=== PATIENT | female | born 1955 | race American Indian/Alaskan Native ===

== ENCOUNTER 2018-01-11 23:22 | Inpatient (IN) | payer OTHER ==
[2018-01-11] MEDS ORDERED: NORVASC ONE (23:41)
[2018-01-11] MEDS ORDERED: NORVASC PO ONE (23:50)
--- NOTE | 2018-01-12 00:41 | Cat Scan Report ---
FINAL REPORT EXAM: CT HEAD/BRAIN WO CON HISTORY: Neuro deficits < 6hrs or sx present upon awakening. Right facial droop. TECHNIQUE: Unenhanced axial CT images of the brain were obtained. No prior studies are available for comparison. FINDINGS: The cortical sulci and ventricles are within normal limits for patient's age. There is patchy area of low attenuation in the right basal ganglia, extending superiorly in the right santoro radiata. This is in keeping with infarct, favor subacute/chronic etiology. Correlation with clinical symptoms is recommended. MRI examination can be performed for more definitive evaluation. There is no extra-axial fluid collection, mass, mass effect, midline shift, hydrocephalus, or acute intracranial hemorrhage. The visualized paranasal sinuses and mastoid air cells are clear. There is no skull fracture or other osseous abnormality. The visualized orbits and globes are grossly unremarkable. These findings were discussed with Dr. Mercado at time of interpretation 12:25 a.m. EST 01/12/2018. IMPRESSION: 1. Patchy region of low attenuation in the right basal ganglia and right santoro radiata, in keeping with infarct. While this is of indeterminate age, favor subacute/chronic etiology. Correlation with clinical symptoms is recommended. If necessary, MRI examination can be performed for more definitive evaluation. 2. No mass effect, hydrocephalus, or acute intracranial hemorrhage.
[2018-01-12 00:48] LABS: Basophils # (Auto) 0.1 K/mm3 (0.0-0.1); Basophils % (Auto) 0.7 % (0.0-1.8); Eosinophils # (Auto) 0.1 K/mm3 (0.0-0.4); Eosinophils % (Auto) 1.4 % (0.0-4.3); Hematocrit 42.4 % (30.3-42.9); Hemoglobin 13.9 gm/dl (10.1-14.3); Lymphocytes # (Auto) 2.3 K/mm3 (1.2-5.4); Lymphocytes % (Auto) 28.5 % (13.4-35.0); Mean Corpuscular HGB Conc 33 % (30-34); Mean Corpuscular Hemoglobin 30 pg (28-32); Mean Corpuscular Volume 91 fl (79-97); Monocytes # (Auto) 0.6 K/mm3 (0.0-0.8); Monocytes % (Auto) 7.1 % (0.0-7.3); Platelet Count 182 K/mm3 (140-440); Red Blood Count 4.67 M/mm3 (3.65-5.03); Red Cell Distribution Width 13.7 % (13.2-15.2)
[2018-01-12 00:58] LABS: INR 0.89 (0.87-1.13)
[2018-01-12 00:59] LABS: Partial Thromboplastin Time 26.7 Sec. (24.2-36.6)
[2018-01-12 01:02] LABS: BUN/Creatinine Ratio 22; Blood Urea Nitrogen 24 mg/dL (7-17); Calcium 9.9 mg/dL (8.4-10.2); Hemolysis Index 17
[2018-01-12] MEDS ORDERED: ASPIRIN PO ONE (04:21)
--- NOTE | 2018-01-12 06:14 | Emergency Department Report ---
ED Neuro Deficit HPI - General Chief Complaint: Neuro Symptoms/Deficit Stated Complaint: STROKE SX Time Seen by Provider: 01/12/18 06:12 Source: patient Mode of arrival: Ambulatory Limitations: No Limitations - History of Present Illness Initial Comments: 62-year-old female reports to the emergency department for evaluation of right facial tingling and numbness. This has been present since . In addition the patient has been told that she has some drooping of the left side of her face which family noted as early as yesterday morning. The symptoms have not progressed. The patient denies previous diagnosis of Davenport's palsy. She was taking metoprolol for hypertension but is out for 3 weeks. She mentioned a headache to triage but had no headache at the time of my encounter. She has no history of prior CVA. -: Gradual, days(s) Location: left face, right face Presenting Symptoms: Present: Weak/Paralyzed One Side History of same: No Place: home Severity: mild, moderate Quality: weak, numb, tingling Improves With: none Worsens With: none On Anticoagulants: No Context: gradual onset Associated Symptoms: denies other symptoms (except as above indicated) Treatments Prior to Arrival: none - Related Data Allergies/Adverse Reactions: Allergies Allergy/AdvReac Type Severity Reaction Status Date / Time No Known Allergies Allergy Unverified 01/11/18 23:31 ED Review of Systems ROS: Stated complaint: STROKE SX Other details as noted in HPI Constitutional: denies: chills, fever Eyes: denies: eye pain, eye discharge, vision change ENT: denies: ear pain, throat pain Respiratory: denies: cough, shortness of breath, wheezing Cardiovascular: denies: chest pain, palpitations Endocrine: no symptoms reported Gastrointestinal: denies: abdominal pain, nausea, diarrhea Genitourinary: denies: urgency, dysuria, discharge Musculoskeletal: denies: back pain, joint swelling, arthralgia Skin: denies: rash, lesions Neurological: as per HPI, headache, weakness, numbness, paresthesias Psychiatric: denies: anxiety, depression Hematological/Lymphatic: denies: easy bleeding, easy bruising ED Past Medical Hx - Past Medical History Previous Medical History?: Yes Hx Hypertension: Yes Hx Diabetes: Yes - Surgical History Past Surgical History?: Yes Additional Surgical History: right mastectomy - Social History Smoking Status: Never Smoker Substance Use Type: None ED Neuro Physical Exam - General Limitations: No Limitations General appearance: alert, in no apparent distress Suspected Stroke: Yes - Head Head exam: Present: atraumatic, normocephalic - Eye Eye exam: Present: normal appearance, other (there is weakness of the orbicularis oculi on the left but no apparent front talus weakness). Absent: PERRL, EOMI, scleral icterus Pupils: Present: normal accommodation - ENT ENT exam: Present: mucous membranes moist, other (facial drooping left) - Neck Neck exam: Present: normal inspection. Absent: tenderness, meningismus - Respiratory Respiratory exam: Present: normal lung sounds bilaterally. Absent: respiratory distress - Cardiovascular Cardiovascular Exam: Present: regular rate, normal rhythm. Absent: systolic murmur, diastolic murmur, rubs, gallop - GI/Abdominal GI/Abdominal exam: Present: soft, normal bowel sounds. Absent: distended, tenderness, guarding, rebound, rigid - Extremities Exam Extremities exam: Present: normal inspection - Back Exam Back exam: Present: normal inspection - Neurological Exam Neurological exam: Present: alert, oriented X3. Absent: CN II-XII intact, motor sensory deficit - NIHSS Assessment Interval: Baseline 1a. Level of Consciousness: alert 1b. LOC Questions: answers correctly 1c. LOC Commands: performs tasks correctly 2. Best Gaze: normal 3. Visual: no visual loss 4. Facial Palsy: partial paralysis 5b. Motor Arm Right: no drift 5a. Motor Arm Left: no drift 6a. Motor Leg Left: no drift 6b. Motor Leg Right: no drift 7. Limb Ataxia: absent 8. Sensory: mild/moderate sensory loss 9. Best Language: no aphasia 10. Dysarthria: normal 11. Extinction/Inattention: no abnormality Total Score: 3 Stroke Severity: Minor Stroke - Psychiatric Psychiatric exam: Present: normal affect, normal mood - Skin Skin exam: Present: warm, dry, intact, normal color. Absent: rash ED Course Vital Signs 01/11/18 01/11/18 01/12/18 23:22 23:31 02:19 Temperature 98.7 F Pulse Rate 107 H 117 H Respiratory 16 20 16 Rate Blood Pressure 214/116 214/116 O2 Sat by Pulse 100 99 Oximetry 01/12/18 01/12/18 01/12/18 02:31 02:45 03:00 Temperature Pulse Rate 77 76 79 Respiratory 15 14 16 Rate Blood Pressure 196/89 196/89 167/81 O2 Sat by Pulse Oximetry 01/12/18 01/12/18 01/12/18 03:15 03:31 03:45 Temperature Pulse Rate 86 78 73 Respiratory 15 18 14 Rate Blood Pressure 167/81 167/81 167/81 O2 Sat by Pulse Oximetry 01/12/18 01/12/18 01/12/18 04:00 04:15 04:31 Temperature Pulse Rate 82 85 81 Respiratory 16 14 15 Rate Blood Pressure 161/91 161/91 161/91 O2 Sat by Pulse Oximetry 01/12/18 01/12/18 01/12/18 04:45 05:00 05:15 Temperature Pulse Rate 67 90 99 H Respiratory 14 16 17 Rate Blood Pressure 161/91 163/80 163/80 O2 Sat by Pulse Oximetry 01/12/18 01/12/18 01/12/18 05:31 05:45 06:00 Temperature Pulse Rate 77 79 83 Respiratory 16 18 17 Rate Blood Pressure 163/80 163/80 163/80 O2 Sat by Pulse Oximetry 01/12/18 01/12/18 01/12/18 06:16 06:30 06:46 Temperature Pulse Rate 88 80 83 Respiratory 10 L 14 15 Rate Blood Pressure 172/85 172/85 172/85 O2 Sat by Pulse Oximetry 01/12/18 01/12/18 01/12/18 07:00 07:16 07:30 Temperature Pulse Rate 89 86 88 Respiratory 10 L 12 14 Rate Blood Pressure 172/70 172/70 172/70 O2 Sat by Pulse Oximetry 01/12/18 01/12/18 01/12/18 07:46 08:00 08:16 Temperature Pulse Rate 80 83 87 Respiratory 14 9 L 13 Rate Blood Pressure 172/70 161/65 161/65 O2 Sat by Pulse Oximetry - Reevaluation(s) Reevaluation #1: Patient was admitted for further workup. If she indeed has decreased sensation of the right side of her face associated with a central facial paresis, it would seem that she has had a brainstem event. However, she was found to have a subacute infarct in the right basal ganglion area. In any case, the patient is admitted for a stroke workup. 01/12/18 11:44 01/12/18 11:47 Reevaluation #2: The patient is not a candidate for TPA. Her stroke is subacute and outside the window of thrombolytics. 01/12/18 11:47 - Lab Data Result diagrams: 01/12/18 00:17 01/12/18 00:17 Lab Results 01/12/18 01/12/18 01/12/18 Range/Units 00:17 00:17 00:17 WBC 8.2 (4.5-11.0) K/mm3 RBC 4.67 (3.65-5.03) M/mm3 Hgb 13.9 (10.1-14.3) gm/dl Hct 42.4 (30.3-42.9) % MCV 91 (79-97) fl MCH 30 (28-32) pg MCHC 33 (30-34) % RDW 13.7 (13.2-15.2) % Plt Count 182 (140-440) K/mm3 Lymph % (Auto) 28.5 (13.4-35.0) % [place] % (Auto) 7.1 (0.0-7.3) % Eos % (Auto) 1.4 (0.0-4.3) % Baso % (Auto) 0.7 (0.0-1.8) % Lymph # 2.3 (1.2-5.4) K/mm3 [place] # 0.6 (0.0-0.8) K/mm3 Eos # 0.1 (0.0-0.4) K/mm3 Baso # 0.1 (0.0-0.1) K/mm3 Seg Neutrophils % 62.3 (40.0-70.0) % Seg Neutrophils # 5.1 (1.8-7.7) K/mm3 PT 12.5 (12.2-14.9) Sec. INR 0.89 (0.87-1.13) APTT 26.7 (24.2-36.6) Sec. Thrombin Time (15.1-19.6) Sec. Sodium 132 L (137-145) mmol/L Potassium 3.9 (3.6-5.0) mmol/L Chloride 92.4 L (98-107) mmol/L Carbon Dioxide 22 (22-30) mmol/L Anion Gap 22 mmol/L BUN 24 H (7-17) mg/dL Creatinine 1.1 (0.7-1.2) mg/dL Estimated GFR 51 ml/min BUN/Creatinine Ratio 22 % Glucose 248 H (65-100) mg/dL Calcium 9.9 (8.4-10.2) mg/dL Troponin T < 0.010 (0.00-0.029) ng/mL 01/12/18 Range/Units 00:17 WBC (4.5-11.0) K/mm3 RBC (3.65-5.03) M/mm3 Hgb (10.1-14.3) gm/dl Hct (30.3-42.9) % MCV (79-97) fl MCH (28-32) pg MCHC (30-34) % RDW (13.2-15.2) % Plt Count (140-440) K/mm3 Lymph % (Auto) (13.4-35.0) % [place] % (Auto) (0.0-7.3) % Eos % (Auto) (0.0-4.3) % Baso % (Auto) (0.0-1.8) % Lymph # (1.2-5.4) K/mm3 Stokes # (0.0-0.8) K/mm3 Eos # (0.0-0.4) K/mm3 Baso # (0.0-0.1) K/mm3 Seg Neutrophils % (40.0-70.0) % Seg Neutrophils # (1.8-7.7) K/mm3 PT (12.2-14.9) Sec. INR (0.87-1.13) APTT (24.2-36.6) Sec. Thrombin Time 16.0 (15.1-19.6) Sec. Sodium (137-145) mmol/L Potassium (3.6-5.0) mmol/L Chloride (98-107) mmol/L Carbon Dioxide (22-30) mmol/L Anion Gap mmol/L BUN (7-17) mg/dL Creatinine (0.7-1.2) mg/dL Estimated GFR ml/min BUN/Creatinine Ratio % Glucose (65-100) mg/dL Calcium (8.4-10.2) mg/dL Troponin T (0.00-0.029) ng/mL Laboratory Results - last 24 hr 01/12/18 01/12/18 01/12/18 00:17 00:17 00:17 WBC 8.2 RBC 4.67 Hgb 13.9 Hct 42.4 MCV 91 MCH 30 MCHC 33 RDW 13.7 Plt Count 182 Lymph % (Auto) 28.5 [place] % (Auto) 7.1 Eos % (Auto) 1.4 Baso % (Auto) 0.7 Lymph # 2.3 Stokes # 0.6 Eos # 0.1 Baso # 0.1 Seg Neutrophils % 62.3 Seg Neutrophils # 5.1 PT 12.5 INR 0.89 APTT 26.7 Thrombin Time Sodium 132 L Potassium 3.9 Chloride 92.4 L Carbon Dioxide 22 Anion Gap 22 BUN 24 H Creatinine 1.1 Estimated GFR 51 BUN/Creatinine Ratio 22 Glucose 248 H Calcium 9.9 Troponin T < 0.010 01/12/18 00:17 WBC RBC Hgb Hct MCV MCH MCHC RDW Plt Count Lymph % (Auto) [place] % (Auto) Eos % (Auto) Baso % (Auto) Lymph # Stokes # Eos # Baso # Seg Neutrophils % Seg Neutrophils # PT INR APTT Thrombin Time 16.0 Sodium Potassium Chloride Carbon Dioxide Anion Gap BUN Creatinine Estimated GFR BUN/Creatinine Ratio Glucose Calcium Troponin T - EKG Data -: EKG Interpreted by Nh EKG shows normal: sinus rhythm, axis (leftward axis), intervals, QRS complexes, ST-T waves Interpretation: no acute changes - Radiology Data Radiology results: report reviewed Patchy region of low attenuation in the right basal ganglion and right santoro radiata in keeping with subacute infarct. - Thrombolytic Inclusion/Exclusion Thrombolytic Exclusion Criteria: Symptom Onset > 3 Hours (2-3 days) Critical care attestation.: If time is entered above; I have spent that time in minutes in the direct care of this critically ill patient, excluding procedure time. ED Disposition Clinical Impression: Hypertension, uncontrolled CVA (cerebral vascular accident) Qualifiers: CVA mechanism: unspecified Qualified Code(s): I63.9 - Cerebral infarction, unspecified Disposition: OP ADMIT IP TO THIS HOSP Is pt being admited?: Yes Does the pt Need Aspirin: Yes Condition: Stable Time of Disposition: 10:00
--- NOTE | 2018-01-12 06:54 | XRay Report ---
FINAL REPORT EXAM: XR CHEST 1V AP HISTORY: Hypertension. TECHNIQUE: A single frontal portable radiograph of the chest was obtained. No prior studies are available for comparison. FINDINGS: The patient is slightly rotated on this exam. The heart is normal in size and the aorta is moderately tortuous. There is eventration of the right hemidiaphragm. The lungs are clear bilaterally, without focal infiltrate or effusion. There is no pneumothorax. There are mild spondylotic changes seen in the spine. IMPRESSION: Tortuous aorta. No active disease seen in the chest.
[2018-01-12] MEDS ORDERED: SODIUM CHLORIDE FLUSH SYRINGE 10 ML IV PRN ×2 (08:26)
[2018-01-12] MEDS ORDERED: D50W (25GM) Syringe IV PRN (08:30)
--- NOTE | 2018-01-12 09:46 | History and Physical Report ---
History of Present Illness Date of examination: 01/12/18 Date of admission: 01/12/18 08:30 Chief complaint: Facial droop History of present illness: Patient is a 62-year-old female with past medical hx of hypertension, diabetes mellitus who presents to the hospital with complaints of right facial tingling and numbness. This has been present since . In addition the patient has been told that she has some drooping of the right side of her face which family noted as early as yesterday morning. The symptoms have not progressed. The patient denies previous diagnosis of Davenport's palsy. She was taking metoprolol amongst other medications for hypertension but is out for 3 weeks. She mentioned a headache to triage but had no headache at the time of my encounter. She has no history of prior CVA. On admission the patient reports she has not been able to feel her metoprolol due to switching physicians from Dr. Valdez to Dr. Victoria Liang. On arrival to the hospital she was noted to have a systolic blood pressure of 214. She also had a history of breast cancer of the right breast had a vasectomy in addition to chemotherapy or radiation therapy 2011 with no noted recurrence. She does have denies any chest pain nausea vomiting or diarrhea she denies any palpitations. She denies any history of atrial fibrillation or irregular heartbeat. She denies any history of blood clots. Past History Past Medical History: cancer (breast cancer status post right mastectomy since 2011), diabetes, hypertension Past Surgical History: mastectomy Social history: lives with family, full code Family history: CAD, cancer, hypertension Medications and Allergies Allergies Allergy/AdvReac Type Severity Reaction Status Date / Time No Known Allergies Allergy Unverified 01/11/18 23:31 Active Meds: Active Medications Acetaminophen (Tylenol) 650 mg PO Q4H PRN PRN Reason: Pain MILD(1-3)/Fever >100.5/TABOR Aspirin (Aspirin) 325 mg PO QDAY JUDY Dextrose (D50w (25gm) Syringe) 50 ml IV PRN PRN PRN Reason: Hypoglycemia Hydrochlorothiazide (Hctz) 25 mg PO QDAY JUDY Insulin Human Lispro (Humalog) 0 unit SUB-Q ACHS JUDY; Protocol Lisinopril (Zestril) 20 mg PO QDAY JUDY Ondansetron HCl (Zofran) 4 mg IV Q8H PRN PRN Reason: Nausea And Vomiting Sodium Chloride (Sodium Chloride Flush Syringe 10 Ml) 10 ml IV BID JUDY Sodium Chloride (Sodium Chloride Flush Syringe 10 Ml) 10 ml IV PRN PRN PRN Reason: LINE FLUSH Home meds clonidin 0.2mg qhs metoprolol 100mg daily-been out for two weeks Lisnopril 20 mg daily Hctz 25mg combination metformin and Glipidzide-not sure of dose Review of Systems Neurological: paralysis (facial nerves), motor disturbance (left facial droop) Exam - Physical Exam Narrative exam: VITAL SIGNS: Reviewed. GENERAL: The patient appeared well nourished and normally developed. Vital signs as documented. HEAD: No signs of head trauma. EYES: Pupils are equal. Extraocular motions intact. EARS: Hearing grossly intact. MOUTH: Oropharynx is normal. NECK: No adenopathy, no JVD. CHEST: Chest with clear breath sounds bilaterally. No wheezes, rales, or rhonchi. CARDIAC: Regular rate and rhythm. S1 and S2, without murmurs, gallops, or rubs. VASCULAR: No Edema. Peripheral pulses normal and equal in all extremities. ABDOMEN: Soft, without detectable tenderness. No sign of distention. No rebound or guarding, and no masses palpated. Bowel Sounds normal. MUSCULOSKELETAL: Good range of motion of all major joints. Extremities without clubbing, cyanosis or edema. NEUROLOGIC EXAM: Alert and oriented x 3. Right-sided facial droop. Speech normal. Follows commands. PSYCHIATRIC: Mood normal. SKIN: No rash or lesions. - Constitutional Vitals: Temp Pulse Resp BP Pulse Ox 98.2 F 87 18 152/79 100 01/12/18 09:25 01/12/18 09:25 01/12/18 09:25 01/12/18 09:25 01/12/18 09:25 Results - Labs CBC & Chem 7: 01/12/18 00:17 01/12/18 00:17 Labs: Laboratory Last Values WBC 8.2 K/mm3 (4.5-11.0) 01/12/18 00:17 RBC 4.67 M/mm3 (3.65-5.03) 01/12/18 00:17 Hgb 13.9 gm/dl (10.1-14.3) 01/12/18 00:17 Hct 42.4 % (30.3-42.9) 01/12/18 00:17 MCV 91 fl (79-97) 01/12/18 00:17 MCH 30 pg (28-32) 01/12/18 00:17 MCHC 33 % (30-34) 01/12/18 00:17 RDW 13.7 % (13.2-15.2) 01/12/18 00:17 Plt Count 182 K/mm3 (140-440) 01/12/18 00:17 Lymph % (Auto) 28.5 % (13.4-35.0) 01/12/18 00:17 [place] % (Auto) 7.1 % (0.0-7.3) 01/12/18 00:17 Eos % (Auto) 1.4 % (0.0-4.3) 01/12/18 00:17 Baso % (Auto) 0.7 % (0.0-1.8) 01/12/18 00:17 Lymph # 2.3 K/mm3 (1.2-5.4) 01/12/18 00:17 [place] # 0.6 K/mm3 (0.0-0.8) 01/12/18 00:17 Eos # 0.1 K/mm3 (0.0-0.4) 01/12/18 00:17 Baso # 0.1 K/mm3 (0.0-0.1) 01/12/18 00:17 Seg Neutrophils % 62.3 % (40.0-70.0) 01/12/18 00:17 Seg Neutrophils # 5.1 K/mm3 (1.8-7.7) 01/12/18 00:17 PT 12.5 Sec. (12.2-14.9) 01/12/18 00:17 INR 0.89 (0.87-1.13) 01/12/18 00:17 APTT 26.7 Sec. (24.2-36.6) 01/12/18 00:17 Thrombin Time 16.0 Sec. (15.1-19.6) 01/12/18 00:17 Sodium 132 mmol/L (137-145) L 01/12/18 00:17 Potassium 3.9 mmol/L (3.6-5.0) 01/12/18 00:17 Chloride 92.4 mmol/L (98-107) L 01/12/18 00:17 Carbon Dioxide 22 mmol/L (22-30) 01/12/18 00:17 Anion Gap 22 mmol/L 01/12/18 00:17 BUN 24 mg/dL (7-17) H 01/12/18 00:17 Creatinine 1.1 mg/dL (0.7-1.2) 01/12/18 00:17 Estimated GFR 51 ml/min 01/12/18 00:17 BUN/Creatinine Ratio 22 % 01/12/18 00:17 Glucose 248 mg/dL (65-100) H 01/12/18 00:17 Calcium 9.9 mg/dL (8.4-10.2) 01/12/18 00:17 Troponin T < 0.010 ng/mL (0.00-0.029) 01/12/18 00:17 - Imaging and Cardiology CT Scan - head: image reviewed (cva) Assessment and Plan Assessment and plan: Patient is a 62-year-old female with past medical hx of hypertension, diabetes mellitus who presents to the hospital with complaints of right facial tingling and numbness. This has been present since . In addition the patient has been told that she has some drooping of the left side of her face which family noted as early as yesterday morning. The symptoms have not progressed. The patient denies previous diagnosis of Davenport's palsy. She was taking metoprolol amongst other medications for hypertension but is out for 3 weeks. She mentioned a headache to triage but had no headache at the time of my encounter. She has no history of prior CVA. On admission the patient reports she has not been able to feel her metoprolol due to switching physicians from Dr. Valdez to Dr. Victoria Liang. On arrival to the hospital she was noted to have a systolic blood pressure of 214. She also had a history of breast cancer of the right breast had a vasectomy in addition to chemotherapy or radiation therapy 2011 with no noted recurrence. She does have denies any chest pain nausea vomiting or diarrhea she denies any palpitations. She denies any history of atrial fibrillation or irregular heartbeat. She denies any history of blood clots. CVA Hypertensive Urgency DM with hyperglycemia HX of breast CA s/p Masectomy, Radiation and chemotherapy in 2012 PLAN * Admit to Tele, monitor for cardiac arrythemia * Neuro check * Neurology consult * Start ASA AND High dose statin. Check lipid profile * Patient refusing MRI despite premedication. states she is claustrophobia. Will repeat CT * Control BP following period of permisive HTN * Rehab evaluation * CAROTID US * DVT/GI prophy The high probability of a clinically significant, sudden or life threatening deterioration of the [neurology] system(s) required my full and direct attention , intervention and personal management. The aggregate critical care time was [35 ] minutes. This time is in addition to time spent performing reported procedures but includes the following: [x] Data Review and interpretation [x] Patient assessment and monitoring of vital signs [x] Documentation [x] Medication orders and management Advance Directives: Yes Plan of care discussed with patient/family: Yes
[2018-01-12] MEDS ORDERED: VERSED IV ONE (09:48)
[2018-01-12] MEDS: ASPIRIN PO SCH (11:00)
[2018-01-12] MEDS: ZESTRIL PO SCH (11:00)
[2018-01-12] MEDS: HCTZ PO SCH (11:00)
[2018-01-12] MEDS: HumaLOG SUB-Q SCH ×3 (11:30→21:54)
[2018-01-12] MEDS: SODIUM CHLORIDE FLUSH SYRINGE 10 ML IV SCH ×2 (17:32→22:00)
[2018-01-12] MEDS ORDERED: LANTUS SUB-Q SCH (22:00)
[2018-01-12] MEDS ORDERED: CATAPRES PO SCH (22:00)
[2018-01-13] MEDS: ZOFRAN IV PRN (02:10)
[2018-01-13 08:48] LABS: Chol/HDL Ratio 5.65 %
[2018-01-13] MEDS: HumaLOG SUB-Q SCH ×4 (09:04→22:55)
[2018-01-13] MEDS: ASPIRIN PO SCH (09:06)
[2018-01-13] MEDS: ZESTRIL PO SCH (09:07)
[2018-01-13] MEDS: HCTZ PO SCH (09:08)
[2018-01-13] MEDS: TYLENOL PO PRN (09:16)
[2018-01-13] MEDS ORDERED: LOPRESSOR PO SCH (10:00)
--- NOTE | 2018-01-13 11:49 | Progress Note ---
Assessment and Plan Assessment and plan: Patient is a 62-year-old female with past medical hx of hypertension, diabetes mellitus who presents to the hospital with complaints of right facial tingling and numbness. This has been present since . In addition the patient has been told that she has some drooping of the left side of her face which family noted as early as yesterday morning. The symptoms have not progressed. The patient denies previous diagnosis of Davenport's palsy. She was taking metoprolol amongst other medications for hypertension but is out for 3 weeks. She mentioned a headache to triage but had no headache at the time of my encounter. She has no history of prior CVA. On admission the patient reports she has not been able to feel her metoprolol due to switching physicians from Dr. Valdez to Dr. Victoria Liang. On arrival to the hospital she was noted to have a systolic blood pressure of 214. She also had a history of breast cancer of the right breast had a vasectomy in addition to chemotherapy or radiation therapy 2011 with no noted recurrence. She does have denies any chest pain nausea vomiting or diarrhea she denies any palpitations. She denies any history of atrial fibrillation or irregular heartbeat. She denies any history of blood clots. CVA Hypertensive Urgency DM with hyperglycemia HX of breast CA s/p Mastectomy, Radiation and chemotherapy in 2011 Syncope with Bradycardia Mixed Hyperlipidemia PLAN * Admit to Tele, monitor for cardiac arrhythmia * Neuro check * Neurology consult * Hold Clonidine and BB * Obtain cardiology consult. * Start ASA AND High dose statin. * Patient refusing MRI despite premedication. states she is claustrophobia. Will repeat CT * Control BP following period of permissive HTN * Rehab evaluation * CAROTID US-Negative. * DVT/GI prophy The high probability of a clinically significant, sudden or life threatening deterioration of the [neurology] system(s) required my full and direct attention , intervention and personal management. The aggregate critical care time was [35 ] minutes. This time is in addition to time spent performing reported procedures but includes the following: [x] Data Review and interpretation [x] Patient assessment and monitoring of vital signs [x] Documentation [x] Medication orders and management History Interval history: Patient is seen today for: CVA Seen and examined at bedside; 24hour events reviewed; nursing staff; Denies any chest pain, nausea, vomiting, diarrhea/ Overnight had a syncopal episode and was bradycardic on monitor prior to event No fever noted blood pressure controlled Hospitalist Physical - Physical exam Narrative exam: VITAL SIGNS: Reviewed. GENERAL: The patient appeared well nourished and normally developed. Vital signs as documented. HEAD: No signs of head trauma. EYES: Pupils are equal. Extraocular motions intact. EARS: Hearing grossly intact. MOUTH: Oropharynx is normal. NECK: No adenopathy, no JVD. CHEST: Chest with clear breath sounds bilaterally. No wheezes, rales, or rhonchi. CARDIAC: Regular rate and rhythm. S1 and S2, without murmurs, gallops, or rubs. VASCULAR: No Edema. Peripheral pulses normal and equal in all extremities. ABDOMEN: Soft, without detectable tenderness. No sign of distention. No rebound or guarding, and no masses palpated. Bowel Sounds normal. MUSCULOSKELETAL: Good range of motion of all major joints. Extremities without clubbing, cyanosis or edema. NEUROLOGIC EXAM: Alert and oriented x 3. Right-sided facial droop. Speech normal. Follows commands. PSYCHIATRIC: Mood normal. SKIN: No rash or lesions. - Constitutional Vitals: Temp Pulse Resp BP Pulse Ox 97.7 F 74 18 114/61 96 01/13/18 04:32 01/13/18 09:07 01/13/18 04:32 01/13/18 09:07 01/13/18 08:39 Results - Labs CBC & Chem 7: 01/12/18 00:17 01/12/18 00:17 Labs: Laboratory Last Values WBC 8.2 K/mm3 (4.5-11.0) 01/12/18 00:17 RBC 4.67 M/mm3 (3.65-5.03) 01/12/18 00:17 Hgb 13.9 gm/dl (10.1-14.3) 01/12/18 00:17 Hct 42.4 % (30.3-42.9) 01/12/18 00:17 MCV 91 fl (79-97) 01/12/18 00:17 MCH 30 pg (28-32) 01/12/18 00:17 MCHC 33 % (30-34) 01/12/18 00:17 RDW 13.7 % (13.2-15.2) 01/12/18 00:17 Plt Count 182 K/mm3 (140-440) 01/12/18 00:17 Lymph % (Auto) 28.5 % (13.4-35.0) 01/12/18 00:17 Hidalgo % (Auto) 7.1 % (0.0-7.3) 01/12/18 00:17 Eos % (Auto) 1.4 % (0.0-4.3) 01/12/18 00:17 Baso % (Auto) 0.7 % (0.0-1.8) 01/12/18 00:17 Lymph # 2.3 K/mm3 (1.2-5.4) 01/12/18 00:17 Hidalgo # 0.6 K/mm3 (0.0-0.8) 01/12/18 00:17 Eos # 0.1 K/mm3 (0.0-0.4) 01/12/18 00:17 Baso # 0.1 K/mm3 (0.0-0.1) 01/12/18 00:17 Seg Neutrophils % 62.3 % (40.0-70.0) 01/12/18 00:17 Seg Neutrophils # 5.1 K/mm3 (1.8-7.7) 01/12/18 00:17 PT 12.5 Sec. (12.2-14.9) 01/12/18 00:17 INR 0.89 (0.87-1.13) 01/12/18 00:17 APTT 26.7 Sec. (24.2-36.6) 01/12/18 00:17 Thrombin Time 16.0 Sec. (15.1-19.6) 01/12/18 00:17 Sodium 132 mmol/L (137-145) L 01/12/18 00:17 Potassium 3.9 mmol/L (3.6-5.0) 01/12/18 00:17 Chloride 92.4 mmol/L (98-107) L 01/12/18 00:17 Carbon Dioxide 22 mmol/L (22-30) 01/12/18 00:17 Anion Gap 22 mmol/L 01/12/18 00:17 BUN 24 mg/dL (7-17) H 01/12/18 00:17 Creatinine 1.1 mg/dL (0.7-1.2) 01/12/18 00:17 Estimated GFR 51 ml/min 01/12/18 00:17 BUN/Creatinine Ratio 22 % 01/12/18 00:17 Glucose 248 mg/dL (65-100) H 01/12/18 00:17 POC Glucose 280 (70-105) H 01/13/18 07:29 Calcium 9.9 mg/dL (8.4-10.2) 01/12/18 00:17 Troponin T < 0.010 ng/mL (0.00-0.029) 01/12/18 00:17 Triglycerides 121 mg/dL (2-149) 01/13/18 07:31 Cholesterol 215 mg/dL (50-199) H 01/13/18 07:31 LDL Cholesterol Direct 168 mg/dL (50-130) H 01/13/18 07:31 HDL Cholesterol 38 mg/dL (40-59) L 01/13/18 07:31 Cholesterol/HDL Ratio 5.65 % 01/13/18 07:31
[2018-01-13] MEDS: SODIUM CHLORIDE FLUSH SYRINGE 10 ML IV SCH ×2 (12:05→22:45)
[2018-01-13 14:29] LABS: Calcium 9.7 mg/dL (8.4-10.2)
--- NOTE | 2018-01-13 15:12 | Consultation ---
HISTORY OF PRESENT ILLNESS: This is a 62-year-old female that presented to the Emergency Room because of right facial tingling and numbness. She has had a prior history of weakness and drooping on the left side of her face the previous day. She has had no prior history of previous CVA. She presented to the Emergency Room, she was noted both to have weakness and numbness of both left and right face. Her potassium is 2.4 and her blood pressure was 196/89. She had a white blood count of 8200, hematocrit 42.4. The patient's sodium is 132, glucose was elevated at 248. The patient's initial evaluation suggested that she had an acute stroke. She was given aspirin and she was not a candidate for TPA at that time she presented. Exclusion criteria for thrombolytic and the patient was noted to have initials CT scan that I reviewed a patchy area of infarct in the right face involving the right santoro radiata suggestive of small vessel disease. At this time, MRI scan is pending. Carotid ultrasound is pending. Examination does show of both right and left sided facial weakness. Current blood pressure is 161/65, pulse rate is 87, respirations 18. Cranial nerves bilateral facial weakness, the left side is greater than right. Sensory loss in the left face. Lower limb weakness is noted. Remainder of the neurological examination otherwise is entirely unremarkable. No evidence of seizures asterixis. No focal rigidity. No dystonia or abnormal movements are present. No seizure activity is noted to be present on observing the patient. IMPRESSION: Acute stroke of right cerebral hemisphere is evident on the CT scan, however, interestingly, the patient also had symptoms in her left face, which should be further looked into acute MRI scan will be gotten during this hospitalization and also is pending. She has strong risk factors include hypertension, diabetes and age. Would recommend medical therapy, thrombolytic high dose statin. JOB# [id number] AUGUSTINE/NTS
[2018-01-13] MEDS ORDERED: LANTUS SUB-Q SCH (22:00)
--- NOTE | 2018-01-14 09:30 | Cat Scan Report ---
CT HEAD WITHOUT CONTRAST: HISTORY: CVA. TECHNIQUE: Sequential 2.5mm CT images. COMPARISON: 01/11/18. FINDINGS: An area of diminished attenuation measuring 15 x 8 mm is again identified in the right basal ganglia. This is consistent with an ischemic infarct but the age of this is indeterminate. I favor a subacute timeline. The appearance of this infarct is unchanged since 01/11/18 exam. There is an approximate 6 mm area of increased density in the right side of the brainstem on image 6 which appears to represent beam hardening artifact from the adjacent temporal bone. If further evaluation of this area is needed, MRI is recommended. Please correlate with the patient's clinical symptoms. The remaining brain parenchyma remains unremarkable. There is no evidence for hemorrhage, new area of diminished attenuation or mass. No extra-axial fluid collection. Ventricular size is within normal limits. The calvarium is intact. The sinuses and mastoid air cells are well-aerated. IMPRESSION: No significant change since 01/11/18. Ischemic infarct in the right basal ganglia as described above.
[2018-01-14] MEDS: ASPIRIN PO SCH (10:07)
[2018-01-14] MEDS: HCTZ PO SCH (10:07)
[2018-01-14] MEDS: HumaLOG SUB-Q SCH ×4 (10:08→22:12)
[2018-01-14] MEDS: SODIUM CHLORIDE FLUSH SYRINGE 10 ML IV SCH ×2 (10:10→21:58)
[2018-01-14] MEDS ORDERED: NACL 0.9% 500 ML 500 ML IV ONE (10:11)
--- NOTE | 2018-01-14 10:24 | Consultation ---
CARDIOLOGY CONSULTATION Please refer this letter to Dr. Mcbride. HISTORY OF PRESENT ILLNESS: The patient is a 62-year-old -Citizen Of [place] female, who noticed some right facial tingling and numbness and also she was told that there is drooping of the left side of her face, which we noticed on morning that is the day before admission. Otherwise, denied any left-sided weakness or tingling except for the face. Apparently, the patient used to see Dr. Mcbride in the past; however, she is supposed to see Dr. Karen Liang, but she ran out of her metoprolol for last 3 weeks. She denied any chest pain or shortness of breath. Her blood pressure in the Emergency Room was found to be elevated up to 214/116. Denied any chest pain, shortness of breath. The patient denied any previous cardiac history of myocardial infarction or congestive heart failure or irregular heartbeat. She has history of diabetes mellitus for last 3 years, history of essential hypertension , history of breast cancer, status post right mastectomy and radiation therapy and chemotherapy at [facility] in 2011. SOCIAL HISTORY: She used to smoke. She denied any history of smoking or alcohol use or drug use. The patient is not . She has three children. MEDICATIONS: At home included clonidine 0.2 mg at bedtime, metoprolol 100 mg daily, lisinopril 20 mg and hydrochlorothiazide in addition to metformin and glipizide. She ran out of her metoprolol for last few weeks. REVIEW OF SYSTEMS: Denied any chest pain, shortness of breath, no palpitations, no history of syncope. Denied any fever or coughing. No abdominal pain. No change in the bowel habits. No urinary symptoms. No unusual headaches. Denies any shortness of breath with her usual activities. No orthopnea. She does walk soft without any complaints of chest pain, shortness of breath, no leg swelling. No fever or chills. PHYSICAL EXAMINATION: GENERAL: The patient appears to be comfortable with left facial droop and some slurred speech. Otherwise, no weakness on the left side. HEENT: Conjunctivae pink. Sclerae anicteric. NECK: Supple, no JVD. HEART: Regular, probably S4, no S3, no significant murmurs. LUNGS: Clear. ABDOMEN: Benign. EXTREMITIES: Without edema. NEUROLOGIC: Alert, oriented x 3. The patient does have left facial drooping. LABORATORY DATA: While at admission were markedly elevated. Today, her blood pressure is normal 114/61 with pulse of 74 beats per minute, afebrile. Laboratory data showed HDL of 38, LDL of 168, cholesterol of 215. FINAL IMPRESSION: 1. Left facial drooping. Neurology workup in progress. 2. Essential hypertension, uncontrolled at the time of presentation because she has a note for beta blockers, presently under control. Continue the same. 3. Hyperlipidemia, started on atorvastatin. Agree with the same. The patient denies any previous cardiac history. We will check the echocardiogram once it is ordered. The patient is in sinus rhythm at this point. Agree with present management. Thank you very much, Dr. Mcbride for letting us to participate in your patient's care. JOB# [id number] MARY/TAVIA MASON
[2018-01-14 11:27] LABS: Calcium 9.7 mg/dL (8.4-10.2)
--- NOTE | 2018-01-14 12:51 | Progress Note ---
Assessment and Plan Assessment: Acute ischemic CVA - follow neuro recs Syncope / transient high-degree AV block - pt reportedly taking PO lopressor 100mg BID at home Hypertensive urgency - improving DM with hyperglycemia HLP H/o of breast CA s/p Mastectomy, Radiation and chemotherapy in 2011 Plan: Echo reviewed - EF 55-60%, borderline LVH, impaired relaxation, no ASD demonstrated by agitated saline contrast, RVSP 31mmHg. Obtain thyroid profile. Hold all AV greyson blocking agents. Obtain EP consultation. Pt may potentially require PPM. Assessment and plan reviewed with pt and pt's daughter at bedside. The patient has been seen in conjunction with Dr. Parra who agrees with the assessment and plan of care. Subjective Date of service: 01/14/18 Principal diagnosis: CVA; bradycardia Interval history: pt resting comfortably in bed, no current cardiac complaints. she reports that she is still experiencing right-sided facial tingling intermittently. Tele reviewed with no acute events noted overnight. However, pt noted to have high- grade AV block on 01/13/2018 at 1:00AM until 2:00AM. She reports that she was asleep when she was suddenly awakened by shortness of breath. She got up to to go the restroom and then lost consciousness. She awoke on the floor surrounded by 4 nurses. Pt's daughter at bedside witnessed this syncopal event and verifies it. For unclear reasons, cardiology was not notified. Objective Last Vital Signs Temp 98.3 F 01/14/18 07:39 Pulse 77 01/14/18 07:39 Resp 18 01/14/18 07:39 BP 128/78 01/14/18 07:39 Pulse Ox 97 01/14/18 07:39 - Physical Examination General: No Apparent Distress HEENT: Positive: PERRL, Normocephaly, Mucus Membranes Moist Neck: Positive: neck supple, trachea midline Cardiac: Positive: Reg Rate and Rhythm, S1/S2 Lungs: Positive: clear to auscultation Neuro: Positive: Other (left-sided facial droop, right-sided facial tingling ) Abdomen: Positive: Soft. Negative: Tender Skin: Positive: Clear. Negative: Rash, Wound Musculoskeletal: No Fluid Collection, No Pain, Normal Range of Motion Extremities: Absent: edema - Labs and Meds Comprehensive Metabolic Panel 05/06/18 05/07/18 Range/Units 13:53 10:35 Sodium 135 L 135 L (137-145) mmol/L Potassium 4.3 4.5 (3.6-5.0) mmol/L Chloride 91.6 L 96.7 L (98-107) mmol/L Carbon Dioxide 27 21 L (22-30) mmol/L BUN 31 H 35 H (7-17) mg/dL Creatinine 1.6 H 1.2 (0.7-1.2) mg/dL Glucose 335 H 269 H (65-100) mg/dL Calcium 9.7 9.7 (8.4-10.2) mg/dL - Imaging and Cardiology EKG: report reviewed, image reviewed - Telemetry EKG Rhythm: Sinus Rhythm - EKG Sinus rhythms and dysrhythmias: sinus rhythm
[2018-01-14] MEDS: LANTUS SUB-Q SCH (22:12)
--- NOTE | 2018-01-14 23:48 | Progress Note ---
Assessment and Plan Assessment and plan: Patient is a 62-year-old female with past medical hx of hypertension, diabetes mellitus who presents to the hospital with complaints of right facial tingling and numbness. This has been present since . In addition the patient has been told that she has some drooping of the left side of her face which family noted as early as yesterday morning. The symptoms have not progressed. The patient denies previous diagnosis of Davenport's palsy. She was taking metoprolol amongst other medications for hypertension but is out for 3 weeks. She mentioned a headache to triage but had no headache at the time of my encounter. She has no history of prior CVA. On admission the patient reports she has not been able to feel her metoprolol due to switching physicians from Dr. Valdez to Dr. Victoria Liang. On arrival to the hospital she was noted to have a systolic blood pressure of 214. She also had a history of breast cancer of the right breast had a vasectomy in addition to chemotherapy or radiation therapy 2011 with no noted recurrence. She does have denies any chest pain nausea vomiting or diarrhea she denies any palpitations. She denies any history of atrial fibrillation or irregular heartbeat. She denies any history of blood clots. CVA Hypertensive Urgency DM with hyperglycemia HX of breast CA s/p Mastectomy, Radiation and chemotherapy in 2011 Syncope with Bradycardia wih high grader AV block Mixed Hyperlipidemia PLAN * Continue on Tele * Neuro check * Neurology consult * Electrophysiciologist ordered to the patient * Hold Clonidine and BB, will like to give carotid sx. * Obtain cardiology consult. * Start ASA AND High dose statin. * Patient refusing MRI despite premedication. states she is claustrophobia. Will repeat CT * Control BP following period of permissive HTN * Rehab evaluation * CAROTID US-Negative. * DVT/GI prophy History Interval history: Patient is seen today for: CVA Seen and examined at bedside; 24hour events reviewed; nursing staff; Denies any chest pain, nausea, vomiting, diarrhea/ Overnight had a syncopal episode. remains stable No fever noted blood pressure controlled Hospitalist Physical - Physical exam Narrative exam: VITAL SIGNS: Reviewed. GENERAL: The patient appeared well nourished and normally developed. Vital signs as documented. HEAD: No signs of head trauma. EYES: Pupils are equal. Extraocular motions intact. EARS: Hearing grossly intact. MOUTH: Oropharynx is normal. NECK: No adenopathy, no JVD. CHEST: Chest with clear breath sounds bilaterally. No wheezes, rales, or rhonchi. CARDIAC: Regular rate and rhythm. S1 and S2, without murmurs, gallops, or rubs. VASCULAR: No Edema. Peripheral pulses normal and equal in all extremities. ABDOMEN: Soft, without detectable tenderness. No sign of distention. No rebound or guarding, and no masses palpated. Bowel Sounds normal. MUSCULOSKELETAL: Good range of motion of all major joints. Extremities without clubbing, cyanosis or edema. NEUROLOGIC EXAM: Alert and oriented x 3. Right-sided facial droop. Speech normal. Follows commands. PSYCHIATRIC: Mood normal. SKIN: No rash or lesions. - Constitutional Vitals: Temp Pulse Resp BP Pulse Ox 98.1 F 89 18 179/76 100 01/14/18 19:48 01/14/18 19:48 01/14/18 19:48 01/14/18 19:48 01/14/18 19:48 Results - Labs CBC & Chem 7: 01/12/18 00:17 01/14/18 10:35 Labs: Laboratory Last Values WBC 8.2 K/mm3 (4.5-11.0) 01/12/18 00:17 RBC 4.67 M/mm3 (3.65-5.03) 01/12/18 00:17 Hgb 13.9 gm/dl (10.1-14.3) 01/12/18 00:17 Hct 42.4 % (30.3-42.9) 01/12/18 00:17 MCV 91 fl (79-97) 01/12/18 00:17 MCH 30 pg (28-32) 01/12/18 00:17 MCHC 33 % (30-34) 01/12/18 00:17 RDW 13.7 % (13.2-15.2) 01/12/18 00:17 Plt Count 182 K/mm3 (140-440) 01/12/18 00:17 Lymph % (Auto) 28.5 % (13.4-35.0) 01/12/18 00:17 Hart % (Auto) 7.1 % (0.0-7.3) 01/12/18 00:17 Eos % (Auto) 1.4 % (0.0-4.3) 01/12/18 00:17 Baso % (Auto) 0.7 % (0.0-1.8) 01/12/18 00:17 Lymph # 2.3 K/mm3 (1.2-5.4) 01/12/18 00:17 Hart # 0.6 K/mm3 (0.0-0.8) 01/12/18 00:17 Eos # 0.1 K/mm3 (0.0-0.4) 01/12/18 00:17 Baso # 0.1 K/mm3 (0.0-0.1) 01/12/18 00:17 Seg Neutrophils % 62.3 % (40.0-70.0) 01/12/18 00:17 Seg Neutrophils # 5.1 K/mm3 (1.8-7.7) 01/12/18 00:17 PT 12.5 Sec. (12.2-14.9) 01/12/18 00:17 INR 0.89 (0.87-1.13) 01/12/18 00:17 APTT 26.7 Sec. (24.2-36.6) 01/12/18 00:17 Thrombin Time 16.0 Sec. (15.1-19.6) 01/12/18 00:17 Sodium 135 mmol/L (137-145) L 01/14/18 10:35 Potassium 4.5 mmol/L (3.6-5.0) 01/14/18 10:35 Chloride 96.7 mmol/L (98-107) L 01/14/18 10:35 Carbon Dioxide 21 mmol/L (22-30) L 01/14/18 10:35 Anion Gap 22 mmol/L 01/14/18 10:35 BUN 35 mg/dL (7-17) H 01/14/18 10:35 Creatinine 1.2 mg/dL (0.7-1.2) 01/14/18 10:35 Estimated GFR 55 ml/min 01/14/18 10:35 BUN/Creatinine Ratio 29 % 01/14/18 10:35 Glucose 269 mg/dL (65-100) H 01/14/18 10:35 POC Glucose 296 (70-105) H 01/14/18 21:00 Calcium 9.7 mg/dL (8.4-10.2) 01/14/18 10:35 Troponin T < 0.010 ng/mL (0.00-0.029) 01/12/18 00:17 Triglycerides 121 mg/dL (2-149) 01/13/18 07:31 Cholesterol 215 mg/dL (50-199) H 01/13/18 07:31 LDL Cholesterol Direct 168 mg/dL (50-130) H 01/13/18 07:31 HDL Cholesterol 38 mg/dL (40-59) L 01/13/18 07:31 Cholesterol/HDL Ratio 5.65 % 01/13/18 07:31 TSH 4.660 mlU/mL (0.270-4.200) H 01/14/18 14:10 Free T4 1.20 ng/dL (0.76-1.46) 01/14/18 14:10
[2018-01-15 06:34] LABS: Hematocrit 45.5 % (30.3-42.9); Hemoglobin 14.5 gm/dl (10.1-14.3); Mean Corpuscular HGB Conc 32 % (30-34); Mean Corpuscular Hemoglobin 29 pg (28-32); Mean Corpuscular Volume 91 fl (79-97); Platelet Count 166 K/mm3 (140-440); Red Blood Count 4.99 M/mm3 (3.65-5.03); Red Cell Distribution Width 13.8 % (13.2-15.2)
[2018-01-15 06:44] LABS: INR 0.87 (0.87-1.13)
[2018-01-15 07:28] LABS: BUN/Creatinine Ratio 29; Blood Urea Nitrogen 26 mg/dL (7-17); Calcium 9.8 mg/dL (8.4-10.2); Hemolysis Index 26
[2018-01-15] MEDS: HumaLOG SUB-Q SCH ×4 (07:30→22:23)
[2018-01-15] MEDS: ASPIRIN PO SCH (10:00)
[2018-01-15] MEDS ORDERED: NACL 0.9% 1000 ML 1,000 ML ONE (12:52)
[2018-01-15] MEDS ORDERED: ANCEF/STERILE WATER 2 GM/20 ML 2 GM/20 ML SYRINGE IV NR (13:00)
[2018-01-15] MEDS ORDERED: NACL 0.9% 1,000 ML, VANCOMYCIN VIAL 1,000 MG IR ONE (13:00)
[2018-01-15] MEDS ORDERED: VANCOMYCIN VIAL 1,000 MG in NACL 0.9% 1,000 ML IRRIGATION ONE (13:22)
[2018-01-15] MEDS ORDERED: XYLOCAINE 1% 20 mL ONE (13:33)
[2018-01-15] MEDS ORDERED: MARCAINE 0.5% 60 ML INFILTRATI ONE (13:33)
[2018-01-15] MEDS ORDERED: ANCEF/STERILE WATER 2 GM/20 ML 2 GM/20 ML SYRINGE IV ONE (13:34)
--- NOTE | 2018-01-15 13:35 | Progress Note ---
Assessment and Plan Assessment: Acute ischemic CVA - follow neuro recs Syncope / transient high-degree AV block - pt reportedly taking PO lopressor 100mg BID at home Hypertensive urgency - improving DM with hyperglycemia HLP H/o of breast CA s/p Mastectomy, Radiation and chemotherapy in 2011 Plan: Pt for PPM implantation today per EP. Indications, potential risks and benefits of PPM reviewed with pt and she is agreeable to proceed. Consents obtained. Cont to hold all AV greyson blocking agents. The patient has been seen in conjunction with Dr. Parra who agrees with the assessment and plan of care. Subjective Date of service: 01/15/18 Principal diagnosis: CVA; bradycardia Interval history: pt resting comfortably in bed, no current cardiac complaints. Tele reviewed with no acute events noted overnight. Has been NPO since [place] for tentative PPM implantation today. Objective Last Vital Signs Temp 98.1 F 01/14/18 19:48 Pulse 89 01/14/18 19:48 Resp 18 01/14/18 19:48 BP 179/76 01/14/18 19:48 Pulse Ox 100 01/14/18 19:48 - Physical Examination General: No Apparent Distress HEENT: Positive: PERRL, Normocephaly, Mucus Membranes Moist Neck: Positive: neck supple, trachea midline Cardiac: Positive: Reg Rate and Rhythm, S1/S2 Lungs: Positive: clear to auscultation Neuro: Positive: Other (left-sided facial droop, right-sided facial tingling ) Abdomen: Positive: Soft. Negative: Tender Skin: Positive: Clear. Negative: Rash, Wound Musculoskeletal: No Fluid Collection, No Pain, Normal Range of Motion Extremities: Absent: edema - Labs and Meds Coagulation 01/15/18 Range/Units 06:07 PT 12.3 (12.2-14.9) Sec. INR 0.87 (0.87-1.13) CBC 01/15/18 Range/Units 06:07 WBC 7.3 (4.5-11.0) K/mm3 RBC 4.99 (3.65-5.03) M/mm3 Hgb 14.5 H (10.1-14.3) gm/dl Hct 45.5 H (30.3-42.9) % Plt Count 166 (140-440) K/mm3 Comprehensive Metabolic Panel 01/15/18 Range/Units 06:07 Sodium 137 (137-145) mmol/L Potassium 4.3 (3.6-5.0) mmol/L Chloride 98.2 (98-107) mmol/L Carbon Dioxide 23 (22-30) mmol/L BUN 26 H (7-17) mg/dL Creatinine 0.9 (0.7-1.2) mg/dL Glucose 236 H (65-100) mg/dL Calcium 9.8 (8.4-10.2) mg/dL - Imaging and Cardiology EKG: report reviewed, image reviewed Echo: report reviewed (EF 55-60%, borderline LVH, impaired relaxation, no ASD demonstrated by agitated saline contrast, RVSP 31mmHg. ) - Telemetry EKG Rhythm: Sinus Rhythm - EKG Sinus rhythms and dysrhythmias: sinus rhythm
--- NOTE | 2018-01-15 13:38 | Consultation ---
History of Present Illness Consult date: 01/15/18 Consult reason: bradycardia History of present illness: 62-year-old female with a past medical history of hypertension, hyperlipidemia, diabetes, history of right breast carcinoma status post mastectomy/chemotherapy/ radiation in 2011 who presents to [facility] [place] emergency department complaining of right facial tingling and numbness, facial droop, left upper extremity weakness. The patient was unable to have an MRI secondary to claustrophobia. Head CT revealed a right basal ganglia subacute infarct. Within the 24 hours of being in the hospital the patient reports that she suddenly awoke and felt short of breath she tried to get out of bed and as she was walking to the door she lost consciousness. The patient was on telemetry which revealed that she was in complete heart block with a junctional escape at 40 bpm. The episode continued for several minutes. Past History Past Medical History: cancer (breast cancer status post right mastectomy since 2011), diabetes, hypertension Past Surgical History: mastectomy Social history: lives with family, full code Family history: CAD, cancer, hypertension Medications and Allergies Allergies Allergy/AdvReac Type Severity Reaction Status Date / Time No Known Allergies Allergy Unverified 01/11/18 23:31 Home Medications Medication Instructions Recorded Confirmed Last Taken Type Aspirin [Aspirin TAB] 325 mg PO QDAY #30 tablet 01/14/18 Unknown Rx AtorvaSTATin [Lipitor] 40 mg PO QHS #30 tablet 01/14/18 Unknown Rx Hydrochlorothiazide [HCTZ] 25 mg PO QDAY #30 tablet 01/14/18 Unknown Rx Metformin HCl [Glucophage] 850 mg PO BID #60 tablet 01/14/18 Unknown Rx glipiZIDE [glipiZIDE ER] 5 mg PO QAM #30 tab.er.24 01/14/18 Unknown Rx Active Meds: Active Medications Acetaminophen (Tylenol) 650 mg PO Q4H PRN PRN Reason: Pain MILD(1-3)/Fever >100.5/TABOR Last Admin: 01/13/18 09:16 Dose: 650 mg Aspirin (Aspirin) 325 mg PO QDAY [facility] Last Admin: 01/14/18 10:07 Dose: 325 mg Atorvastatin Calcium (Lipitor) 40 mg PO QHS [facility] Last Admin: 01/14/18 21:59 Dose: 40 mg Dextrose (D50w (25gm) Syringe) 50 ml IV PRN PRN PRN Reason: Hypoglycemia Hydrochlorothiazide (Hctz) 25 mg PO QDAY [facility] Last Admin: 01/14/18 10:07 Dose: 25 mg Cefazolin Sodium (Ancef/Sterile Water 2 Gm/20 Ml) 2 gm in 20 mls @ 80 mls/hr IV PREOP NR; Protocol Stop: 01/15/18 18:00 Insulin Glargine (Lantus) 30 units SUB-Q QHS [facility] Last Admin: 01/14/18 22:12 Dose: 30 units Insulin Human Lispro (Humalog) 0 unit SUB-Q ACHS [facility]; Protocol Last Admin: 01/14/18 22:12 Dose: 4 unit Ondansetron HCl (Zofran) 4 mg IV Q8H PRN PRN Reason: Nausea And Vomiting Last Admin: 01/13/18 02:10 Dose: 4 mg Sodium Chloride (Sodium Chloride Flush Syringe 10 Ml) 10 ml IV BID [facility] Last Admin: 01/14/18 21:58 Dose: 10 ml Sodium Chloride (Sodium Chloride Flush Syringe 10 Ml) 10 ml IV PRN PRN PRN Reason: LINE FLUSH Last Admin: 01/13/18 09:08 Dose: 10 ml Review of Systems Constitutional: no weight loss, no weight gain, no fever, no chills Breasts: deferred Cardiovascular: syncope, shortness of breath, no chest pain, no orthopnea, no palpitations, no lightheadedness Respiratory: no cough with sputum, no excessive sputum, no hemoptysis Gastrointestinal: no abdominal pain, no nausea, no vomiting Genitourinary Female: no pelvic pain, no flank pain Menstruation: no currently menstrual Rectal: no pain, no incontinence Musculoskeletal: no neck stiffness, no neck pain, no shooting arm pain Integumentary: no rash, no pruritis Neurological: no head injury, no transient paralysis, no paralysis Psychiatric: no change in appetite Endocrine: no cold intolerance, no heat intolerance Hematologic/Lymphatic: no easy bruising, no easy bleeding Allergic/Immunologic: no urticaria Physical Examination Vital Signs Pulse Resp BP Pulse Ox 107 H 16 214/116 100 01/11/18 23:22 01/11/18 23:22 01/11/18 23:22 01/11/18 23:22 General appearance: no acute distress HEENT: Positive: PERRL, EOMI Neck: Positive: neck supple, trachea midline Cardiac: Positive: Reg Rate and Rhythm Lungs: Positive: Normal Exam, clear to auscultation Abdomen: Positive: Unremarkable, Soft, Active Bowel Sounds Female genitourinary: deferred Skin: Negative: Rash, Suspicious Lesions Musculoskeletal: Normal Range of Motion Extremities: Present: normal. Absent: edema Results 01/15/18 06:07 01/15/18 06:07 Coagulation 01/15/18 Range/Units 06:07 PT 12.3 (12.2-14.9) Sec. INR 0.87 (0.87-1.13) CBC 01/15/18 Range/Units 06:07 WBC 7.3 (4.5-11.0) K/mm3 RBC 4.99 (3.65-5.03) M/mm3 Hgb 14.5 H (10.1-14.3) gm/dl Hct 45.5 H (30.3-42.9) % Plt Count 166 (140-440) K/mm3 Comprehensive Metabolic Panel 01/15/18 Range/Units 06:07 Sodium 137 (137-145) mmol/L Potassium 4.3 (3.6-5.0) mmol/L Chloride 98.2 (98-107) mmol/L Carbon Dioxide 23 (22-30) mmol/L BUN 26 H (7-17) mg/dL Creatinine 0.9 (0.7-1.2) mg/dL Glucose 236 H (65-100) mg/dL Calcium 9.8 (8.4-10.2) mg/dL - Imaging and Cardiology Echo: report reviewed (ECHO 01/25: Normal LV systolic function) EKG interpretations - Telemetry EKG Rhythm: 1st Degree HB Assessment and Plan 62-year-old female with a past history of hypertension, hyperlipidemia, diabetes , history of right breast carcinoma status post right mastectomy who is admitted with subacute cerebrovascular accident. During this hospitalization the patient has symptomatic bradycardia. Telemetry monitoring revealed that the patient had an intermittent episode of complete heart block with a junctional escape rhythm in the 30s and 40s associated with syncope. Today we discussed the risk and benefits of permanent pacemaker implantation the patient is in agreement we will schedule her as an inpatient.
[2018-01-15] MEDS: NACL 0.9% 500 ML IR ONE (14:22)
[2018-01-15] MEDS: VERSED ONE ×2 (14:25→14:33)
[2018-01-15] MEDS: SUBLIMAZE ONE ×3 (14:25→14:46)
[2018-01-15] MEDS ORDERED: VERSED IV ONE (14:34)
[2018-01-15] MEDS: NORMODYNE IV ONE ×2 (15:28→15:43)
[2018-01-15] MEDS ORDERED: ANCEF/NS 1 GM/50 ML 1 GM/50 ML BAG IV SCH (16:00)
--- NOTE | 2018-01-15 17:59 | Progress Note ---
Assessment and Plan Assessment and plan: Patient is a 62-year-old female with past medical hx of right breast cancer s/p mastectomy, hypertension off bp medications and diabetes mellitus type 2 who presents to the hospital with complaints of right facial tingling and numbness. CVA Hypertensive Urgency DM with hyperglycemia HX of breast CA s/p Mastectomy, Radiation and chemotherapy in 2011 Syncope with Bradycardia wih high grade AV block Mixed Hyperlipidemia PLAN * Continue on Tele * Neuro check * Neurology consult * Electrophysiciologist ordered to the patient * Hold Clonidine and BB, will like to give carotid sx. * Obtain cardiology consult. * Start ASA AND High dose statin. * Patient refusing MRI despite premedication. states she is claustrophobia. Will repeat CT * Control BP following period of permissive HTN * Rehab evaluation * CAROTID US-Negative. * DVT/GI prophy PPM pending History Interval history: Patient was seen and examined. Follow-up on current diagnosis. Overnight uneventful. Patient denies any chest pain, shortness breath, nausea/vomiting or severe headaches. Imaging, nursing note, chart, labs and old chart reviewed. Discussed with patient. Hospitalist Physical - Physical exam Narrative exam: GEN: WDWN, NAD, Awake, Alert, Orientated HEENT: NCAT, EOMI, PERRL, OP Clear NECK: supple, no adenopathy, no thyromegaly, no JVD CVS/HEART: RRR, normal S1S2, pulses present bilaterally CHEST/LUNGS: CTA B, Symmetrical chest expansion, good air entry bilaterally GI/Abdomen: soft, NTND, good bowel sounds, no guarding or rebound /Bladder: no suprapubic tenderness, no CVA or paraspinal tenderness EXT/Skin: no c/c/e, no obvious rash MSK: FROM x 4 Neuro: CN 2-12 grossly intact, no new focal deficits, has facial asymmetry, slightly slurred but understandable speech Psych: calm - Constitutional Vitals: Temp Pulse Resp BP Pulse Ox 97.7 F 93 H 18 184/92 99 01/15/18 07:47 01/15/18 07:47 01/15/18 07:47 01/15/18 07:47 01/15/18 07:47 General appearance: Present: no acute distress Results - Labs CBC & Chem 7: 01/15/18 06:07 01/15/18 06:07 Labs: Laboratory Last Values WBC 7.3 K/mm3 (4.5-11.0) 01/15/18 06:07 RBC 4.99 M/mm3 (3.65-5.03) 01/15/18 06:07 Hgb 14.5 gm/dl (10.1-14.3) H 01/15/18 06:07 Hct 45.5 % (30.3-42.9) H 01/15/18 06:07 MCV 91 fl (79-97) 01/15/18 06:07 MCH 29 pg (28-32) 01/15/18 06:07 MCHC 32 % (30-34) 01/15/18 06:07 RDW 13.8 % (13.2-15.2) 01/15/18 06:07 Plt Count 166 K/mm3 (140-440) 01/15/18 06:07 Lymph % (Auto) 28.5 % (13.4-35.0) 01/12/18 00:17 [place] % (Auto) 7.1 % (0.0-7.3) 01/12/18 00:17 Eos % (Auto) 1.4 % (0.0-4.3) 01/12/18 00:17 Baso % (Auto) 0.7 % (0.0-1.8) 01/12/18 00:17 Lymph # 2.3 K/mm3 (1.2-5.4) 01/12/18 00:17 [place] # 0.6 K/mm3 (0.0-0.8) 01/12/18 00:17 Eos # 0.1 K/mm3 (0.0-0.4) 01/12/18 00:17 Baso # 0.1 K/mm3 (0.0-0.1) 01/12/18 00:17 Seg Neutrophils % 62.3 % (40.0-70.0) 01/12/18 00:17 Seg Neutrophils # 5.1 K/mm3 (1.8-7.7) 01/12/18 00:17 PT 12.3 Sec. (12.2-14.9) 01/15/18 06:07 INR 0.87 (0.87-1.13) 01/15/18 06:07 APTT 26.7 Sec. (24.2-36.6) 01/12/18 00:17 Thrombin Time 16.0 Sec. (15.1-19.6) 01/12/18 00:17 Sodium 137 mmol/L (137-145) 01/15/18 06:07 Potassium 4.3 mmol/L (3.6-5.0) 01/15/18 06:07 Chloride 98.2 mmol/L (98-107) 01/15/18 06:07 Carbon Dioxide 23 mmol/L (22-30) 01/15/18 06:07 Anion Gap 20 mmol/L 01/15/18 06:07 BUN 26 mg/dL (7-17) H 01/15/18 06:07 Creatinine 0.9 mg/dL (0.7-1.2) 01/15/18 06:07 Estimated GFR > 60 ml/min 01/15/18 06:07 BUN/Creatinine Ratio 29 % 01/15/18 06:07 Glucose 236 mg/dL (65-100) H 01/15/18 06:07 POC Glucose 225 (70-105) H 01/15/18 06:27 Calcium 9.8 mg/dL (8.4-10.2) 01/15/18 06:07 Troponin T < 0.010 ng/mL (0.00-0.029) 01/12/18 00:17 Triglycerides 121 mg/dL (2-149) 01/13/18 07:31 Cholesterol 215 mg/dL (50-199) H 01/13/18 07:31 LDL Cholesterol Direct 168 mg/dL (50-130) H 01/13/18 07:31 HDL Cholesterol 38 mg/dL (40-59) L 01/13/18 07:31 Cholesterol/HDL Ratio 5.65 % 01/13/18 07:31 TSH 4.660 mlU/mL (0.270-4.200) H 01/14/18 14:10 Free T4 1.20 ng/dL (0.76-1.46) 01/14/18 14:10
[2018-01-15] MEDS: NORCO 5/325 PO PRN (18:02)
[2018-01-15] MEDS: HCTZ PO SCH (18:03)
--- NOTE | 2018-01-15 21:13 | XRay Report ---
FINAL REPORT PROCEDURE: XR CHEST 1V AP TECHNIQUE: Chest radiograph anteroposterior view. CPT 34558 HISTORY: Pacemaker Postop COMPARISON: No prior studies are available for comparison. FINDINGS: Heart: Normal. Mediastinum/Vessels: Normal. Lungs/Pleural space: There is moderate elevation of right hemidiaphragm. Bilateral lungs and pleural spaces are clear.. Bony thorax: No acute osseous abnormality. Life support devices: A bipolar cardiac device is noted on the left side with its leads in place.. IMPRESSION: No acute pulmonary process..
[2018-01-15] MEDS: COREG PO SCH (21:22)
[2018-01-15] MEDS: SODIUM CHLORIDE FLUSH SYRINGE 10 ML IV SCH (22:00)
[2018-01-15] MEDS: LANTUS SUB-Q SCH (22:22)
[2018-01-15] MEDS: ceFAZolin 1 GM in NACL 0.9% 20 ML IV SCH (22:24)
[2018-01-16] MEDS: ZOFRAN IV PRN (02:51)
[2018-01-16] MEDS: NORCO 5/325 PO PRN (02:53)
[2018-01-16] MEDS: NACL 0.9% 500 ML IR ONE (05:15)
[2018-01-16] MEDS: ceFAZolin 1 GM in NACL 0.9% 20 ML IV SCH (06:14)
[2018-01-16] MEDS: SODIUM CHLORIDE FLUSH SYRINGE 10 ML IV SCH ×2 (08:20→10:46)
[2018-01-16] MEDS: HumaLOG SUB-Q SCH ×2 (08:21→12:29)
--- NOTE | 2018-01-16 08:23 | Vascular Lab Report ---
CAROTID DUPLEX STUDY: RIGHT PSVEDV CCA PROX:[id number] CCA DIST:9222 ICA PROX:99961 ICA MID:9726 ICA DIST:9631 ECA: 127 VERT: 30 8 LEFT PSVEDV CCA PROX:[id number] CCA DIST:10086 ICA PROX:7517 ICA MID:9135 ICA DIST:85811 ECA: 120 VERT: 76 23 REASON FOR EXAM: Stroke. COMMENTS ON THE RIGHT: Doppler frequency analysis is consistent with 16 to 49 percent diameter reduction of the internal carotid artery. A small amount of plaque is seen. The common carotid artery is patent. The external carotid artery is patent. The vertebral artery has antegrade flow. COMMENTS ON THE LEFT: Doppler frequency analysis is consistent with 16 to 49 percent diameter reduction of the internal carotid artery. A small amount of plaque is seen. The common carotid artery is patent. The external carotid artery is patent. The vertebral artery has antegrade flow. IMPRESSION: Less than 50% diameter reduction in the internal carotid arteries bilaterally. Consider repeat carotid artery duplex in 12 months.
[2018-01-16] MEDS: HCTZ PO SCH (09:07)
[2018-01-16] MEDS: ASPIRIN PO SCH (09:07)
[2018-01-16] MEDS: COREG PO SCH (09:07)
[2018-01-16 09:08] VITALS: BP 148/89
[2018-01-16] MEDS: TYLENOL PO PRN (10:43)
--- NOTE | 2018-01-16 13:14 | Discharge Summary ---
Providers - Providers Date of Admission: 01/12/18 08:30 Date of discharge: 01/16/18 Attending physician: HEIKE SPENCE 01/12/18 08:26 Consult to Physician [CONS] Routine Comment: Consulting Provider: JEAN-CLAUDE NEELY Physician Instructions: Reason For Exam: cva Occupational Therapy Evaluate and Treat [CONS] Routine Comment: Reason For Exam: Neuro deficits Physical Therapy Evaluation and Treat [CONS] Routine Comment: Reason For Exam: Neuro deficits 01/12/18 08:27 Consult to Dietitian/Nutrition [CONS] Routine Physician Instructions: Reason For Exam: Reason for Consult: Diet education 01/12/18 11:07 Speech Therapy Evaluation and Treat [CONS] Urgent Reason For Exam: Difficult Swallowing 01/13/18 10:51 Consult to Physician [CONS] Routine Comment: Consulting Provider: CHIKI DAVIS Physician Instructions: Reason For Exam: symptomatic bradycardia Primary care physician: JESSICA GOOD Hospitalization Condition: Stable Hospital course: Patient is a 62-year-old female with past medical hx of right breast cancer s/p mastectomy, hypertension off bp medications and diabetes mellitus type 2 who presents to the hospital with complaints of right facial tingling and numbness. CVA Hypertensive Urgency DM with hyperglycemia HX of breast CA s/p Mastectomy, Radiation and chemotherapy in 2011 Syncope and CHB with junctional escape s/p PPM 01/15/[address] Jaycob Wright, d/w Cardiology, nc to discharge Mixed Hyperlipidemia Disposition: DC-01 TO HOME OR SELFCARE Time spent for discharge: 35 minutes Core Measure Documentation - Palliative Care Palliative Care/ Comfort Measures: Not Applicable - Core Measures Any of the following diagnoses?: stroke - VTE Discharge Requirements Deep Vein Thrombosis/Pulmonary Embolism Present on Admission: No Has pt received <5 days of overlap therapy or INR<2.0: No Anticoagulant overlap therapy prescribed at discharge: No Contraindication No Overlap Therapy order at DC: Not Indicated - Stroke Discharge Requirements Statin for LDL = or >70 mg/dl on DC: Yes Anticoag for atrial fib/atrial flutter: Not Applicable Reason for no anticoag for AF/F on DC: Not Indicated Antithrombotic for ischemic stroke: Yes Exam - Physical Exam Narrative exam: GEN: WDWN, NAD, Awake, Alert, Orientated HEENT: NCAT, EOMI, PERRL, OP Clear NECK: supple, no adenopathy, no thyromegaly, no JVD CVS/HEART: RRR, normal S1S2, pulses present bilaterally CHEST/LUNGS: CTA B, Symmetrical chest expansion, good air entry bilaterally GI/Abdomen: soft, NTND, good bowel sounds, no guarding or rebound /Bladder: no suprapubic tenderness, no CVA or paraspinal tenderness EXT/Skin: no c/c/e, no obvious rash MSK: FROM x 4 Neuro: CN 2-12 grossly intact, no new focal deficits, has facial asymmetry, slightly slurred but understandable speech Psych: calm - Constitutional Vitals: Temp Pulse Resp BP Pulse Ox 97.5 F L 86 18 148/89 97 01/16/18 03:58 01/16/18 09:07 01/16/18 03:58 01/16/18 09:07 01/16/18 03:58 Plan Activity: other (no strenous activites until cleared by Cardiology) Diet: low salt, diabetic Special Instructions: smoking cessation Follow up with: JEAN-CLAUDE NEELY MD [Staff Physician] - 7 Days JESSICA GOOD APRN-JOSHUA [Primary Care Provider] - 3-5 Days JAYCOB WRIGHT MD [Staff Physician] - 7 Days Prescriptions: AtorvaSTATin [Lipitor] 40 mg PO QHS #30 tablet Aspirin [Aspirin TAB] 325 mg PO QDAY #30 tablet glipiZIDE [glipiZIDE ER] 5 mg PO QAM #30 tab.er.24 Hydrochlorothiazide [HCTZ] 25 mg PO QDAY #30 tablet Metformin HCl [Glucophage] 850 mg PO BID #60 tablet
--- NOTE | 2018-01-16 14:19 | Progress Note ---
Assessment and Plan Assessment: Acute ischemic CVA - follow neuro recs Syncope / transient CHB - pt reportedly taking PO lopressor 100mg BID at home Hypertensive urgency - improving DM with hyperglycemia HLP H/o of breast CA s/p Mastectomy, Radiation and chemotherapy in 2011 Plan: S/p PPM implantation yesterday. Device interrogation this AM revealed normal device function. Post-procedure CXR with NAF, no pneumothorax. Currently stable cardiac status. Pt may discharge home from cardiology standpoint. Follow up in our [place] office for EP follow up with Dr. Alberto on 2017 @ 2:30PM. Recommend follow up in our office for general cardiology follow up with Dr. Milan within 1-2 weeks of hospital discharge ([phone]). The patient has been seen in conjunction with Dr. Parra who agrees with the assessment and plan of care. Subjective Date of service: 01/16/18 Principal diagnosis: CVA; bradycardia Interval history: pt resting comfortably in bed, no current cardiac complaints. s/p PPM implantation yesterday. Left pectoralis PPM implantation site pressure dressing removed, site covered with telfa and tegaderm dressing, site c/d/i with no evidence of bleeding or hematoma. Objective Last Vital Signs Temp 97.5 F L 01/16/18 03:58 Pulse 86 01/16/18 09:07 Resp 18 01/16/18 03:58 BP 148/89 01/16/18 09:07 Pulse Ox 97 01/16/18 03:58 - Physical Examination General: No Apparent Distress HEENT: Positive: PERRL, EOMI Neck: Positive: neck supple, trachea midline Cardiac: Positive: Reg Rate and Rhythm, S1/S2 Lungs: Positive: clear to auscultation Neuro: Positive: Other (left-sided facial droop, right-sided facial tingling ) Abdomen: Positive: Unremarkable, Soft, Active Bowel Sounds Skin: Positive: Other (site c/d/i with no evidence of bleeding or hematoma). Negative: Rash, Suspicious Lesions Musculoskeletal: Normal Range of Motion Extremities: Present: normal. Absent: edema - Imaging and Cardiology EKG: report reviewed, image reviewed Echo: report reviewed (ECHO 01/25: Normal LV systolic function) - Telemetry EKG Rhythm: Sinus Rhythm - EKG Sinus rhythms and dysrhythmias: sinus rhythm
--- NOTE | 2018-01-16 14:26 | Progress Note ---
Subjective Date of service: 01/16/18 Principal diagnosis: CVA; bradycardia Interval history: stroke symptoms are about totally resolved only minimal left central facial weakness this is better advise ASA statin folic acid and statin for medical therapy Please follow up in my office Objective - Vital Sign Vital Signs - 12hr 01/16/18 01/16/18 01/16/18 02:53 03:58 09:07 Temperature 97.5 F L Pulse Rate 90 86 Respiratory 20 18 Rate Blood Pressure 124/71 148/89 O2 Sat by Pulse 97 Oximetry - Laboratory Findings CBC and BMP: 01/15/18 06:07 01/15/18 06:07 Abnormal Lab Findings: Abnormal Labs 01/12/18 01/12/18 01/12/18 00:17 11:46 15:56 Hgb Hct Sodium 132 L Chloride 92.4 L Carbon Dioxide BUN 24 H Creatinine Glucose 248 H POC Glucose 252 H 225 H Cholesterol LDL Cholesterol Direct HDL Cholesterol TSH 01/12/18 01/13/18 01/13/18 21:29 01:13 07:29 Hgb Hct Sodium Chloride Carbon Dioxide BUN Creatinine Glucose POC Glucose 262 H 231 H 280 H Cholesterol LDL Cholesterol Direct HDL Cholesterol TSH 01/13/18 01/13/18 01/13/18 07:31 11:48 13:53 Hgb Hct Sodium 135 L Chloride 91.6 L Carbon Dioxide BUN 31 H Creatinine 1.6 H Glucose 335 H POC Glucose 301 H Cholesterol 215 H LDL Cholesterol Direct 168 H HDL Cholesterol 38 L TSH 01/13/18 01/13/18 01/14/18 16:44 21:51 05:57 Hgb Hct Sodium Chloride Carbon Dioxide BUN Creatinine Glucose POC Glucose 227 H 226 H 258 H Cholesterol LDL Cholesterol Direct HDL Cholesterol TSH 01/14/18 01/14/18 01/14/18 10:35 12:08 14:10 Hgb Hct Sodium 135 L Chloride 96.7 L Carbon Dioxide 21 L BUN 35 H Creatinine Glucose 269 H POC Glucose 277 H Cholesterol LDL Cholesterol Direct HDL Cholesterol TSH 4.660 H 01/14/18 01/14/18 01/15/18 15:50 21:00 06:07 Hgb 14.5 H Hct 45.5 H Sodium Chloride Carbon Dioxide BUN Creatinine Glucose POC Glucose 262 H 296 H Cholesterol LDL Cholesterol Direct HDL Cholesterol TSH 01/15/18 01/15/18 01/15/18 06:07 06:27 16:52 Hgb Hct Sodium Chloride Carbon Dioxide BUN 26 H Creatinine Glucose 236 H POC Glucose 225 H 226 H Cholesterol LDL Cholesterol Direct HDL Cholesterol TSH 01/15/18 01/16/18 01/16/18 22:12 07:08 12:04 Hgb Hct Sodium Chloride Carbon Dioxide BUN Creatinine Glucose POC Glucose 241 H 233 H 259 H Cholesterol LDL Cholesterol Direct HDL Cholesterol TSH
== END 2018-01-16 17:05 | disposition home or self-care (01) | DRG 242 ==
LOC: ED 23:22 → 4A 01-12 08:30
PROVIDERS: ADMIT Internal Medicine; ATTEND Internal Medicine
PROC: 0JH606Z Insertion of Pacemaker, Dual Chamber into Chest Subcutaneous Tissue and Fascia, Open Approach (ICD-10-PCS; principal; 2018-01-15)
PROC: 02HK3JZ Insertion of Pacemaker Lead into Right Ventricle, Percutaneous Approach (ICD-10-PCS; 2018-01-15)
PROC: 02H63JZ Insertion of Pacemaker Lead into Right Atrium, Percutaneous Approach (ICD-10-PCS; 2018-01-15)
DX: I44.2 Atrioventricular block, complete (principal); I63.9 Cerebral infarction, unspecified; I16.0 Hypertensive urgency; E78.5 Hyperlipidemia, unspecified; R55 Syncope and collapse; F17.200 Nicotine dependence, unspecified, uncomplicated; E78.2 Mixed hyperlipidemia; E11.65 Type 2 diabetes mellitus with hyperglycemia; Z90.11 Acquired absence of right breast and nipple; Z82.49 Family history of ischemic heart disease and other diseases of the circulatory system; Z80.9 Family history of malignant neoplasm, unspecified; Z85.3 Personal history of malignant neoplasm of breast; Z92.21 Personal history of antineoplastic chemotherapy; Z92.3 Personal history of irradiation; Z79.84 Long term (current) use of oral hypoglycemic drugs; Z79.82 Long term (current) use of aspirin; Z79.899 Other long term (current) drug therapy
CPT/HCPCS: 33208; 36415; 70450; 70544; 71045; 80048; 80061; 82962; 84439; 84443; 84484; 85025; 85027; 85610; 85670; 85730; 93005; 93010; 93306; 93880; A9270-GY; C1769; C1779; C1785; C1892; G8978-GP; G8979-GP; J0690; J1815; J2250; J2405; J3010; J3370; J7030; J7040; Q9967

== ENCOUNTER 2021-01-17 17:58 | Inpatient (IN) | payer OTHER ==
--- NOTE | 2021-01-17 20:28 | Event Note ---
ED Screening Note ED Screening Note: Patient is a 65-year-old female presents emergency room complaints of left-sided weakness that began yesterday at 10 AM She states her left arm and left leg feels weak States that she feels tingling to her lips She denies any numbness in the upper extremities or lower extremities She denies any vision changes or speech disturbance Patient denies any chest pain or shortness of breath Past medical history of hypertension and states that she takes metoprolol, losartan, hydrochlorothiazide, she states that she did take her medications No focal neuro deficits on exam, 5 out of 5 strength BUE/BLE, normal gait, normal sensation, no facial asymmetry, no pronator drift This initial assessment/diagnostic orders/clinical plan/treatment(s) is/are subject to change based on patients health status, clinical progression and re- assessment by fellow clinical providers in the ED. Further treatment and workup at subsequent clinical providers discretion. Patient/guardian urged not to elope from the ED as their condition may be serious if not clinically assessed and managed. Initial orders include: Labs, EKG, x-ray, CT, UA
--- NOTE | 2021-01-17 21:02 | Cat Scan Report ---
CT head/brain wo con INDICATION: left sided weakness, HTN urgency. TECHNIQUE: Routine CT head without contrast. All CT scans at this location are performed using CT dos e reduction for ALARA by means of automated exposure control. COMPARISON: Head CT on 01/14/2018. FINDINGS: BRAIN / INTRACRANIAL CONTENTS: No acute hemorrhage, mass effect, midline shift, or hydrocephalus. No appreciable acute large territorial or lacunar infarct. Unchanged chronic lacunar infarct in the righ t lateral thalamus/right internal capsule. Normal ventricular and cisternal size for age. ORBITS: No significant abnormality of visualized orbits. SINUSES / MASTOIDS: No significant abnormality of visualized sinuses and mastoid air cells. ADDITIONAL FINDINGS: None. IMPRESSION: 1. No acute findings. 2. Stable chronic lacunar infarct in the right lower thalamus/right internal capsule. Signer Name: Chase Judge MD Signed: 01/17/2021 8:58 PM Workstation Name: [id number]
--- NOTE | 2021-01-17 21:12 | XRay Report ---
CHEST 2 VIEWS INDICATION / CLINICAL INFORMATION: Hypertension. Weakness and left-sided numbness. COMPARISON: 01/15/18. FINDINGS: SUPPORT DEVICES: The position of the dual chamber left subclavian transvenous pacemaker has not bruner ed. HEART / MEDIASTINUM: The heart size and pulmonary vasculature are normal. The aorta is normal in [place]. LUNGS / PLEURA: No significant pulmonary or pleural abnormality. No pneumothorax. ADDITIONAL FINDINGS: No significant additional findings. IMPRESSION: No acute abnormality or significant change. Signer Name: Jordan Harding MD Signed: 01/17/2021 9:08 PM Workstation Name: [id number]
[2021-01-17 21:43] LABS: Basophils % (Auto) 0.7 % (0.0-1.8); Eosinophils # (Auto) 0.1 K/mm3 (0.0-0.4); Eosinophils % (Auto) 1.9 % (0.0-4.3); Hematocrit 42.7 % (30.3-42.9); Hemoglobin 14.2 gm/dl (10.1-14.3); Lymphocytes # (Auto) 2.1 K/mm3 (1.2-5.4); Lymphocytes % (Auto) 30.2 % (13.4-35.0); Mean Corpuscular HGB Conc 33 % (30-34); Mean Corpuscular Volume 93 fl (79-97); Monocytes # (Auto) 0.5 K/mm3 (0.0-0.8); Monocytes % (Auto) 6.9 % (0.0-7.3); Platelet Count 168 K/mm3 (140-440); Red Blood Count 4.61 M/mm3 (3.65-5.03); Red Cell Distribution Width 13.3 % (13.2-15.2)
[2021-01-17 22:10] LABS: Alanine Aminotransferase 13 units/L (7-56); Albumin 4.2 g/dL (3.9-5); BUN/Creatinine Ratio 21; Blood Urea Nitrogen 27 mg/dL (7-17); Hemolysis Index 7
[2021-01-18] MEDS ORDERED: hydrALAZINE 20 MG/1 ML INJ IV ONE (04:23)
[2021-01-18] MEDS ORDERED: ASPIRIN 325 MG TAB PO ONE (04:23)
--- NOTE | 2021-01-18 04:28 | Emergency Department Report ---
ED Neuro Deficit HPI - General Chief Complaint: Neuro Symptoms/Deficit Stated Complaint: LT SIDE BODY WEAK Time Seen by Provider: 01/17/21 20:25 Source: patient Mode of arrival: Ambulatory Limitations: No Limitations - History of Present Illness Initial Comments: Patient is 65 years old female with history of hypertension, diabetes and a pacemaker. Patient presented to the ER complaining of left sided weakness, patient stated that the weakness is mostly in the left leg. Patient also stated that she has speech problems since Sunday. Patient patient denied any headache, neck pain, chest pain or shortness of breath. Patient found to have a blood pressure of 220/85. -: days(s) (3) Location: speech, left arm, left leg Presenting Symptoms: Present: Weak/Paralyzed One Side History of same: Yes Place: home Context: sudden onset Associated Symptoms: denies other symptoms - Related Data Home Medications: Previous Rx's Medication Instructions Recorded Last Taken Type Aspirin 325 mg PO QDAY #30 tablet 01/14/18 Unknown Rx AtorvaSTATin [Lipitor] 40 mg PO QHS #30 tablet 01/14/18 Unknown Rx Metformin HCl [Glucophage] 850 mg PO BID #60 tablet 01/14/18 Unknown Rx glipiZIDE [glipiZIDE ER] 5 mg PO QAM #30 tab.er.24 01/14/18 Unknown Rx hydroCHLOROthiazide [HCTZ] 25 mg PO QDAY #30 tablet 01/14/18 Unknown Rx Allergies/Adverse Reactions: Allergies Allergy/AdvReac Type Severity Reaction Status Date / Time No Known Allergies Allergy Unverified 01/11/18 23:31 ED Review of Systems ROS: Stated complaint: LT SIDE BODY WEAK Other details as noted in HPI Comment: All other systems reviewed and negative Constitutional: denies: chills, fever Respiratory: denies: cough, shortness of breath Cardiovascular: denies: chest pain, palpitations Gastrointestinal: denies: abdominal pain, nausea, vomiting Musculoskeletal: denies: back pain Neurological: weakness, numbness. denies: headache, paresthesias, confusion, abnormal gait ED Past Medical Hx - Past Medical History Previous Medical History?: Yes Hx Hypertension: Yes Hx CVA: Yes (01/2018) Hx Congestive Heart Failure: No Hx Diabetes: Yes Hx Asthma: No Hx COPD: No - Surgical History Additional Surgical History: right mastectomy - Social History Smoking Status: Former Smoker - Medications Home Medications: Home Medications Medication Instructions Recorded Confirmed Last Taken Type Aspirin 325 mg PO QDAY #30 tablet 01/14/18 Unknown Rx AtorvaSTATin [Lipitor] 40 mg PO QHS #30 tablet 01/14/18 Unknown Rx Metformin HCl [Glucophage] 850 mg PO BID #60 tablet 01/14/18 Unknown Rx glipiZIDE [glipiZIDE ER] 5 mg PO QAM #30 tab.er.24 01/14/18 Unknown Rx hydroCHLOROthiazide [HCTZ] 25 mg PO QDAY #30 tablet 01/14/18 Unknown Rx ED Neuro Physical Exam - General Limitations: No Limitations General appearance: alert, in no apparent distress Suspected Stroke: Yes - Head Head exam: Present: atraumatic, normocephalic, normal inspection - Eye Eye exam: Present: normal appearance, PERRL - ENT ENT exam: Present: normal exam, normal orophraynx, mucous membranes moist - Neck Neck exam: Present: normal inspection, full ROM. Absent: tenderness, meningismus - Respiratory Respiratory exam: Present: normal lung sounds bilaterally - Cardiovascular Cardiovascular Exam: Present: regular rate, normal rhythm, normal heart sounds - GI/Abdominal GI/Abdominal exam: Present: soft, normal bowel sounds. Absent: distended, tenderness, guarding, rebound, rigid, diminished bowel sounds, organomegaly, mass, bruit, pulsatile mass, hernia - Extremities Exam Extremities exam: Present: normal inspection, full ROM, normal capillary refill. Absent: tenderness - Back Exam Back exam: Present: normal inspection, full ROM. Absent: CVA tenderness (R), CVA tenderness (L) - Neurological Exam Neurological exam: Present: alert, oriented X3, CN II-XII intact, normal gait, reflexes normal - NIHSS Assessment Interval: Baseline 1a. Level of Consciousness: alert/keenly responsive 1b. LOC Questions: answers both correctly 1c. LOC Commands: performs tasks correctly 2. Best Gaze: normal 3. Visual: no visual loss 4. Facial Palsy: normal symmetrical movement 5b. Motor Arm Right: no drift 5a. Motor Arm Left: no drift 6a. Motor Leg Left: no drift 6b. Motor Leg Right: no drift 7. Limb Ataxia: absent 8. Sensory: normal 9. Best Language: no aphasia 10. Dysarthria: mild/moderate dysarthria 11. Extinction/Inattention: no abnormality Total Score: 1 Stroke Severity: Minor Stroke - Psychiatric Psychiatric exam: Present: normal mood - Skin Skin exam: Present: warm, intact, normal color ED Course Vital Signs 01/17/21 01/17/21 01/18/21 20:15 20:32 03:49 Temperature 98.4 F Pulse Rate 178 H 89 75 Respiratory 14 100 H 16 Rate Blood Pressure 251/104 Blood Pressure 242/112 [Left] O2 Sat by Pulse 31 L 98 Oximetry - Lab Data Result diagrams: 01/17/21 21:08 01/17/21 21:08 Lab Results 01/17/21 01/17/21 Range/Units 21:08 21:08 WBC 6.9 (4.5-11.0) K/mm3 RBC 4.61 (3.65-5.03) M/mm3 Hgb 14.2 (10.1-14.3) gm/dl Hct 42.7 (30.3-42.9) % MCV 93 (79-97) fl MCH 31 (28-32) pg MCHC 33 (30-34) % RDW 13.3 (13.2-15.2) % Plt Count 168 (140-440) K/mm3 Lymph % (Auto) 30.2 (13.4-35.0) % [place] % (Auto) 6.9 (0.0-7.3) % Eos % (Auto) 1.9 (0.0-4.3) % Baso % (Auto) 0.7 (0.0-1.8) % Lymph # (Auto) 2.1 (1.2-5.4) K/mm3 [place] # (Auto) 0.5 (0.0-0.8) K/mm3 Eos # (Auto) 0.1 (0.0-0.4) K/mm3 Baso # (Auto) 0.0 (0.0-0.1) K/mm3 Seg Neutrophils % 60.3 (40.0-70.0) % Seg Neutrophils # 4.1 (1.8-7.7) K/mm3 Sodium 133 L (137-145) mmol/L Potassium 4.4 (3.6-5.0) mmol/L Chloride 97.1 L (98-107) mmol/L Carbon Dioxide 26 (22-30) mmol/L Anion Gap 14 mmol/L BUN 27 H (7-17) mg/dL Creatinine 1.3 H (0.6-1.2) mg/dL Estimated GFR 50 ml/min BUN/Creatinine Ratio 21 % Glucose 342 H (65-100) mg/dL Calcium 10.0 (8.4-10.2) mg/dL Magnesium 1.80 (1.7-2.3) mg/dL Total Bilirubin 0.30 (0.1-1.2) mg/dL AST 10 (5-40) units/L ALT 13 (7-56) units/L Alkaline Phosphatase 100 (35-129) units/L Total Creatine Kinase 54 (30-135) units/L Troponin T < 0.010 (0.00-0.029) ng/mL Total Protein 7.8 (6.3-8.2) g/dL Albumin 4.2 (3.9-5) g/dL Albumin/Globulin Ratio 1.2 % - EKG Data -: EKG Interpreted by Me EKG shows normal: sinus rhythm Rate: normal Interpretation: no acute changes - Radiology Data Radiology results: report reviewed - Medical Decision Making Patient is 65 years old female with history of hypertension, diabetes and a pacemaker. Patient presented to the ER complaining of left sided weakness, patient stated that the weakness is mostly in the left leg. Patient also stated that she has speech problems since Sunday. Patient patient denied any headache, neck pain, chest pain or shortness of breath. Patient found to have a blood pressure of 220/85. Stroke scale is 1. CT scan showed no evidence of acute bleeding. Patient is not a TPA candidate since the onset of symptoms is more than 4.5-hour. Also there is no evidence of large vessels occlusion. Patient blood pressure is significantly elevated at 220 systolic, patient received 10 mg of hydralazine IV to decrease the blood pressure a little bit and is still to keep it above 180 systolic. I discussed the patient with , he agreed to admit the patient to medical service for further management. Critical Care Time: Yes Critical care time in (mins) excluding proc time.: 30 Critical care attestation.: If time is entered above; I have spent that time in minutes in the direct care of this critically ill patient, excluding procedure time. ED Disposition Clinical Impression: Acute CVA (cerebrovascular accident), Hypertensive emergency Disposition: DC09 OP ADMIT IP TO THIS HOSP Is pt being admited?: Yes Condition: Stable Instructions: Hypertension (ED) Referrals: PRIMARY CARE,MD [Primary Care Provider] - 3-5 Days
[2021-01-18 06:27] LABS: INR 0.92 (0.87-1.13)
[2021-01-18 06:28] LABS: Partial Thromboplastin Time 24.8 Sec. (24.2-36.6); Thrombin Time 18.4 Sec. (15.1-19.6)
--- NOTE | 2021-01-18 08:37 | History and Physical Report ---
History of Present Illness Date of examination: 01/18/21 Date of admission: 01/18/21 04:51 Chief complaint: Left-sided weakness History of present illness: Patient is 65 years old female with history of hypertension, diabetes mellitus type II on Metformin and a pacemaker in situ presented to the ER complaining of left sided weakness, mostly in the left leg along with some slurred speech since last Sunday. Patient patient denied any headache, neck pain, chest pain or shortness of breath. Since her symptoms are not getting better she decided to come to the ER for further evaluation and management. In the ER patient found to have a blood pressure of 220/85. Her speech is noted to be normal in the ER with some left-sided weakness. CT head was unremarkable. Teleneurology was consulted and did not recommend any TPA. Patient was admitted with stroke protocol for further evaluation and management. Past medical History: h/o hypertension and diabetes mellitus type 2 Past surgical History: None Social History: Lives with family, denies any smoking, drinking and elicit drug abuse. Family History: Significant for hypertension Review of System: Constitutional: no fever, no chills, no weight loss Ears, eyes, nose, mouth and throat: no nasal congestion, no nasal discharge, no sinus pressure, no vision change, no red eye. Neck: No neck pain or rigidity. Cardiovascular: No chest pain, no orthopnea, no palpitations, no leg swelling Respiratory: No shortness of breath, no cough, no congestion, no wheezing Gastrointestinal: no abdominal pain, no nausea, no vomiting Genitourinary : no dysuria, no hematuria Musculoskeletal: no joint swelling or muscle ache Integumentary: no rash, no pruritis Neurological: no parathesias, no numbness, no tingling, left-sided weakness Endocrine: no cold or heat intolerance, no polyuria or polydipsia Hematologic/Lymphatic: no easy bruising, no easy bleeding, no gland swelling Allergic/Immunologic: no urticaria, no angioedema. Medications and Allergies Allergies Allergy/AdvReac Type Severity Reaction Status Date / Time lisinopril Allergy Shortness Verified 01/18/21 05:51 of Breath Home Medications Medication Instructions Recorded Confirmed Last Taken Type Aspirin 325 mg PO QDAY #30 tablet 01/14/18 01/18/21 01/18/21 Rx AtorvaSTATin [Lipitor] 40 mg PO QHS #30 tablet 01/14/18 01/18/21 01/17/21 Rx Metformin HCl [Glucophage] 850 mg PO BID #60 tablet 01/14/18 01/18/21 01/17/21 Rx hydroCHLOROthiazide [HCTZ] 25 mg PO QDAY #30 tablet 01/14/18 01/18/21 01/17/21 Rx cloNIDine [Catapres] 0.1 mg PO PRN PRN 01/18/21 01/19/21 Unknown History Insulin NPH/Regular [NovoLIN 70/30] 15 unit SUB-Q BIDDIAB 30 Days 01/19/21 Unknown Rx Insulin Regular, Human [HumuLIN R] 0 units SUB-Q ACHS 30 Days 01/19/21 Unknown Rx amLODIPine 10 mg PO QDAY #30 tablet 01/19/21 Unknown Rx carvediloL [Coreg] 6.25 mg PO BID #60 tablet 01/19/21 Unknown Rx Exam - Physical Exam Narrative exam: GENERAL: well-developed and well-nourished obese -[place] female lying on bed appeared to be in no discomfort. HEENT: Normocephalic. Atraumatic. No conjunctival congestion or icterus. Patient has moist mucous membranes. NECK: Supple. Trachea midline. CHEST/LUNGS: Clear to auscultated bilaterally, breathing nonlabored. No wheezes crackles or rhonchi. HEART/CARDIOVASCULAR: Regular in rate and rhythm. S1 and S2 positive. ABDOMEN: Abdomen is soft, nontender. Patient has normal bowel sounds. SKIN: There is no rash. Warm and dry. NEURO: Mild left-sided weakness. Follows command. MUSCULOSKELETAL: No joint effusion or tenderness. EXTRIMITY: No edema, no cyanosis or clubbing. PSYCH: Cooperative. - Constitutional Vitals: Temp Pulse Resp BP Pulse Ox 98.4 F 68 18 189/75 100 01/17/21 20:15 01/18/21 04:41 01/18/21 05:00 01/18/21 05:01 01/18/21 08:30 HEART Score - HEART Score Troponin: Troponin T < 0.010 ng/mL (0.00-0.029) 01/18/21 06:00 Results - Labs CBC & Chem 7: 01/17/21 21:08 01/18/21 08:43 Labs: Abnormal lab results 01/17/21 01/18/21 Range/Units 21:08 08:25 Sodium 133 L (137-145) mmol/L Chloride 97.1 L (98-107) mmol/L BUN 27 H (7-17) mg/dL Creatinine 1.3 H (0.6-1.2) mg/dL Glucose 342 H (65-100) mg/dL POC Glucose 333 H (70-105) mg/dL - Imaging and Cardiology CT Scan - head: report reviewed Assessment and Plan Acute CVA -- We will admit the patient to remote telemetry - We'll place on aspirin and statin, will consult neurology - CT scan of the head obtained in the ER and shows no acute intracranial process -Cannot get MRI of the head as patient has pacemaker, -We will order for carotid Doppler, 2-D echocardiogram - We will also get hemoglobin A1c level and fasting lipid panel - Consult PTOT and speech therapist - Keep the patient nothing by mouth for now, monitor blood glucose - Further management will be based on pending lab results and imaging studies - We'll place on GI prophylaxis to avoid stress ulcer - Place on DVT prophylaxis Hypertensive emergency -We will keep her on hydralazine IV as needed for SBP greater than 160 -We will add oral antihypertensives and adjust doses to BP less than 160 Diabetes mellitus type 2 -Consistent carb diet, SSI -We will check A1c Pacemaker in situ, monitor with telemetry Mild hyponatremia, monitor BMP, normal saline hydration as needed PRITI, likely vasomotor nephropathy -Repeat BMP in the morning, gentle IV fluid hydration Obesity -Dietary and exercise recommendation will be provided on discharge DVT prophylaxis: Placed on Lovenox
[2021-01-18] MEDS ORDERED: hydrALAZINE 20 MG/1 ML INJ IV PRN (08:38)
[2021-01-18] MEDS ORDERED: ONDANSETRON 4 MG/2 ML INJ IV PRN (08:39)
[2021-01-18] MEDS ORDERED: MAGNESIUM HYDROXIDE (MOM) ORAL LIQD UDC PO PRN (08:39)
[2021-01-18] MEDS ORDERED: METOCLOPRAMIDE 10 MG TAB PO PRN (08:39)
[2021-01-18] MEDS ORDERED: PROMETHAZINE 25 MG RECT SUPP PR PRN (08:39)
--- NOTE | 2021-01-18 08:59 | History and Physical Report ---
History of Present Illness Date of examination: 01/18/21 Date of admission: 01/18/21 04:51 Chief complaint: Left side weakness since sunday History of present illness: Patient is 65 years old female with history of hypertension, diabetes and a pacemaker. Patient presented to the ER complaining of left sided weakness, patient stated that the weakness is mostly in the left leg. Patient also stated that she has speech problems since Sunday. Patient denied any headache, neck pain, chest pain or shortness of breath. Patient found to have a blood pressure of 220/85. she is on ASA 325 taking it regularly at home mis some time today on my evaluation she feels better CT brain In ER is remarkable for right thalamus and internal capsule lacunar infarct CTA not done MRI can not be done due to pace maker Home Medications: Previous Rx's Medication Instructions Recorded Last Taken Type Aspirin 325 mg PO QDAY #30 tablet 01/14/18 Unknown Rx AtorvaSTATin [Lipitor] 40 mg PO QHS #30 tablet 01/14/18 Unknown Rx Metformin HCl [Glucophage] 850 mg PO BID #60 tablet 01/14/18 Unknown Rx glipiZIDE [glipiZIDE ER] 5 mg PO QAM #30 tab.er.24 01/14/18 Unknown Rx hydroCHLOROthiazide [HCTZ] 25 mg PO QDAY #30 tablet 01/14/18 Unknown Rx Allergies/Adverse Reactions: Allergies Allergy/AdvReac Type Severity Reaction Status Date / Time No Known Allergies Allergy Unverified 01/11/18 23:31 ED Review of Systems ROS: Stated complaint: LT SIDE BODY WEAK Other details as noted in HPI Comment: All other systems reviewed and negative Constitutional: denies: chills, fever Respiratory: denies: cough, shortness of breath Cardiovascular: denies: chest pain, palpitations Gastrointestinal: denies: abdominal pain, nausea, vomiting Musculoskeletal: denies: back pain Neurological: weakness, numbness. denies: headache, paresthesias, confusion, abnormal gait ED Past Medical Hx - Past Medical History Previous Medical History?: Yes Hx Hypertension: Yes Hx CVA: Yes (01/2018) Hx Congestive Heart Failure: No Hx Diabetes: Yes Hx Asthma: No Hx COPD: No - Surgical History Additional Surgical History: right mastectomy - Social History Smoking Status: Former Smoker Medications and Allergies Allergies Allergy/AdvReac Type Severity Reaction Status Date / Time lisinopril Allergy Shortness Verified 01/18/21 05:51 of Breath Home Medications Medication Instructions Recorded Confirmed Last Taken Type Aspirin 325 mg PO QDAY #30 tablet 01/14/18 01/18/21 01/18/21 Rx AtorvaSTATin [Lipitor] 40 mg PO QHS #30 tablet 01/14/18 01/18/21 01/17/21 Rx Metformin HCl [Glucophage] 850 mg PO BID #60 tablet 01/14/18 01/18/21 01/17/21 Rx hydroCHLOROthiazide [HCTZ] 25 mg PO QDAY #30 tablet 01/14/18 01/18/21 01/17/21 Rx cloNIDine [Catapres] 0.1 mg PO PRN 01/18/21 Unknown History Active Meds: Active Medications Acetaminophen (Acetaminophen 325 Mg Tab) 650 mg PO Q4H PRN PRN Reason: Pain, Mild (1-3) Amlodipine Besylate (Amlodipine 10 Mg Tab) 10 mg PO QDAY [facility] Aspirin (Aspirin 325 Mg Tab) 325 mg PO QDAY [facility] Atorvastatin Calcium (Atorvastatin 40 Mg Tab) 40 mg PO QHS [facility] Bisacodyl (Bisacodyl 10 Mg Rect Supp) 10 mg RI QDAY PRN PRN Reason: Constipation Carvedilol (Carvedilol 6.25 Mg Tab) 6.25 mg PO BID JUDY Enoxaparin Sodium (Enoxaparin 40 Mg/0.4 Ml Inj) 40 mg SUB-Q QDAY@2200 JUDY; Protocol Hydralazine HCl (Hydralazine 20 Mg/1 Ml Inj) 5 mg IV Q30MIN PRN PRN Reason: Hypertension Hydrochlorothiazide (Hydrochlorothiazide 25 Mg Tab) 25 mg PO QDAY [facility] Magnesium Hydroxide (Magnesium Hydroxide (Mom) Oral Liqd Udc) 30 ml PO Q4H PRN PRN Reason: Constipation Metoclopramide HCl (Metoclopramide 10 Mg Tab) 10 mg PO Q6H PRN PRN Reason: Nausea And Vomiting Ondansetron HCl (Ondansetron 4 Mg/2 Ml Inj) 4 mg IV Q8H PRN PRN Reason: Nausea And Vomiting Promethazine HCl (Promethazine 25 Mg Rect Supp) 25 mg RI Q6H PRN PRN Reason: Nausea And Vomiting Sodium Chloride (Sodium Chloride 0.9% 10 Ml Flush Syringe) 10 ml INJ PRN PRN PRN Reason: LINE FLUSH Physical Examination - Vital Signs Vital Signs: Vital Signs Temp Pulse Resp BP Pulse Ox 98.4 F 178 H 14 251/104 31 L 01/17/21 20:15 01/17/21 20:15 01/17/21 20:15 01/17/21 20:15 01/17/21 20:15 - Constitutional General appearance: comfortable - EENT EENT: Present: PERRL, mucous membranes moist - Respiratory Respiratory: Present: chest non-tender, lungs clear - Cardiovascular Cardiovascular: Present: normal S1, normal S2 Extremities: Present: no peripheral edema bilatateraly, no clubbing, cyanosis - Gastrointestinal Gastrointestinal: Present: normoactive bowel sounds - Integumentary Integumentary: Present: normal - Neurologic Cranial nerve examination: PERRL, EOMI, V1/V2/V3 grossly intact Speech examination: intact Detailed motor examination: other (left upper 3+/5 left lower 4/5 right side 4/5 no sensory deficit reflexes 1+ bilateral) Results - Laboratory Findings CBC and BMP: 01/17/21 21:08 01/18/21 08:43 Abnormal Lab Findings: Abnormal Labs 01/17/21 01/18/21 21:08 08:25 Sodium 133 L Chloride 97.1 L BUN 27 H Creatinine 1.3 H Glucose 342 H POC Glucose 333 H Assessment and Plan Medical Decision Making Patient is 65 years old female with history of hypertension, diabetes and a pacemaker. Patient presented to the ER complaining of left sided weakness, alanis ent stated that the weakness is mostly in the left leg. Patient also stated that she has speech problems since Sunday. Patient denied any headache, neck pain, chest pain or shortness of breath. Patient found to have a blood pressure of 220/85. # CVA -she is with left side weakness -left arm> left leg -mostly lacunar infarct - CT right lacunar infarct thalamus and Internal capsule -MRI can not be done -CTA not done -ECHO and Us carotid is pending -Suggest maintain ASA 325 mg daily -Better control BP<150/80 -Better control of suger -Check A1C and LDL -Lipitor 40 mg daily -Pt therapy # DM -Chck A1C -A1C<7 -Initial BS#342 #Hypertensive emergency -BP Initially 189/75 -better comply with medication # Pt. is with Pace maker -MRI can not be performed -cardiac enzymes PLAN 1- Comply with BP medications with BP<150/80 2- A1C<7 3-LDL<70 4- ASA 325 mg and Lipitor 40 Mg 5- comply with medications 6- PT therapy DVT precaution Review ECHO and US carotid will follow as needed
[2021-01-18] MEDS: amLODIPine 10 MG TAB PO SCH (09:49)
[2021-01-18] MEDS ORDERED: ACETAMINOPHEN 325 MG TAB PO PRN (10:00)
[2021-01-18 11:04] LABS: Calcium 9.9 mg/dL (8.4-10.2)
--- NOTE | 2021-01-18 12:40 | Vascular Lab Report ---
Bilateral Carotid Doppler duplex Ultrasound INDICATION : Stroke TECHNIQUE: Grayscale and color Doppler imaging performed through the neck. COMPARISON: None FINDINGS: This is a limited exam due to technical issues relating to body habitus and rapid breathing. Right: There is no significant atherosclerotic disease. Peak systolic velocity in the CCA is 122 cm /s with end-diastolic velocity of 13 cm/s. Peak systolic velocity in the proximal ICA is 108 cm/s wit h end-diastolic velocity of 21 cm/s. ICA to CCA ratio is less than 2. There is antegrade flow in the ECA and the vertebral artery. Left: There is no significant atherosclerotic disease. Peak systolic velocity in the CCA is 150 cm/s with end-diastolic velocity of 16 cm/s. Peak systolic velocity in the proximal ICA is 100 cm/s with e nd-diastolic velocity of 24 cm/s. ICA to CCA ratio is less than 2. There is antegrade flow in the EC A and the vertebral artery. IMPRESSION: No hemodynamically significant stenosis by NASCET criteria. Signer Name: Dutch Rivas MD Signed: 01/18/2021 12:36 PM Workstation Name: [id number]
[2021-01-18] MEDS: INSULIN REGULAR, HUMAN 100 UNITS/1 ML SUB-Q SCH ×3 (13:08→22:08)
[2021-01-18] MEDS: carvediloL 6.25 MG TAB PO SCH ×2 (13:12→22:07)
[2021-01-18] MEDS: hydroCHLOROthiazide 25 MG TAB PO SCH (13:12)
[2021-01-18] MEDS ORDERED: ENOXAPARIN 40 MG/0.4 ML INJ SUB-Q SCH (22:00)
[2021-01-18] MEDS ORDERED: INSULIN GLARGINE 100 UNITS/ML SUB-Q SCH (22:00)
[2021-01-19 06:02] LABS: Chol/HDL Ratio 6.54 %
[2021-01-19] MEDS: INSULIN REGULAR, HUMAN 100 UNITS/1 ML SUB-Q SCH ×3 (08:27→16:24)
[2021-01-19 09:46] VITALS: BP 128/53
[2021-01-19] MEDS ORDERED: ASPIRIN 325 MG TAB PO SCH (10:00)
[2021-01-19] MEDS: carvediloL 6.25 MG TAB PO SCH (10:41)
[2021-01-19] MEDS: amLODIPine 10 MG TAB PO SCH (10:42)
[2021-01-19] MEDS: hydroCHLOROthiazide 25 MG TAB PO SCH (10:42)
[2021-01-19] MEDS: metFORMIN 850 MG TAB PO SCH ×2 (10:44→16:24)
--- NOTE | 2021-01-19 11:55 | Progress Note ---
Assessment and Plan Medical Decision Making Patient is 65 years old female with history of hypertension, diabetes and a pacemaker. Patient presented to the ER complaining of left sided weakness, patient stated that the weakness is mostly in the left leg. Patient also stated that she has speech problems since Sunday. Patient denied any headache, neck pain, chest pain or shortness of breath. Patient found to have a blood pressure of 220/85. # CVA -she is with left side weakness -left arm> left leg -- leg improved -mostly lacunar infarct - CT right lacunar infarct thalamus and Internal capsule -MRI can not be done due to pace maker -CTA not done -ECHO is pending - Us carotid is <50% bilateral -Suggest maintain ASA 325 mg daily -Better control BP<150/80 -Better control of suger -Check A1C#12 - and LDL#163 -Lipitor 40 mg daily -Pt therapy # DM -Chck A1C -better control of A1C<7 -Initial BS#342 #Hypertensive emergency -BP Initially 189/75--- now 126/69 -better comply with medication # Pt. is with Pace maker -MRI can not be performed -cardiac enzymes PLAN 1- Comply with BP medications with BP<150/80 2- A1C<7 3-LDL<70 4- ASA 325 mg and Lipitor 40 Mg 5- comply with medications 6- PT therapy DVT precaution Review ECHO will sign off Subjective Date of service: 01/19/21 Principal diagnosis: left leg weakness Interval history: doing better leg improved she is with residual left arm weakness echo is pending Objective - Vital Signs Vital signs: Vital Signs - 12hr 01/19/21 01/19/21 01/19/21 00:00 04:03 08:13 Temperature 97.8 F 98.0 F Pulse Rate 79 82 78 Respiratory 18 18 Rate Blood Pressure 114/63 128/53 O2 Sat by Pulse 95 100 Oximetry 01/19/21 01/19/21 01/19/21 10:00 10:41 10:42 Temperature Pulse Rate 78 78 Respiratory Rate Blood Pressure 128/53 128/53 O2 Sat by Pulse 99 Oximetry - General Appearance General appearance: well-developed EENT: PERRL Neck: no JVD Respiratory: Present: Clear to Ascultation Cardiology: regular Gastrointestinal: normal Integumentary: no rash Neurologic: no focal deficit, other (left arm drift left leg 4/5) - Lab 01/17/21 21:08 01/18/21 08:43 Most recent lab results Calcium 9.9 mg/dL (8.4-10.2) 01/18/21 08:43 Magnesium 1.80 mg/dL (1.7-2.3) 01/17/21 21:08 Medications & Allergies - Medications Allergies/Adverse Reactions: Allergies lisinopril Allergy (Verified 01/18/21 05:51) Shortness of Breath Home Medications: Home Medications Medication Instructions Recorded Confirmed Last Taken Type Aspirin 325 mg PO QDAY #30 tablet 01/14/18 01/18/21 01/18/21 Rx AtorvaSTATin [Lipitor] 40 mg PO QHS #30 tablet 01/14/18 01/18/21 01/17/21 Rx Metformin HCl [Glucophage] 850 mg PO BID #60 tablet 01/14/18 01/18/21 01/17/21 Rx hydroCHLOROthiazide [HCTZ] 25 mg PO QDAY #30 tablet 01/14/18 01/18/21 01/17/21 Rx cloNIDine [Catapres] 0.1 mg PO PRN PRN 01/18/21 01/19/21 Unknown History Active Medications: Generic Name Dose Route Start Last Admin Trade Name Freq PRN Reason Stop Dose Admin Acetaminophen 650 mg 01/18/21 10:00 Acetaminophen 325 Mg Tab PO Q4H PRN Pain, Mild (1-3) Amlodipine Besylate 10 mg 01/18/21 10:00 01/19/21 10:42 Amlodipine 10 Mg Tab PO 10 mg QDAY JUDY Administration Aspirin 325 mg 01/19/21 10:00 01/19/21 10:41 Aspirin 325 Mg Tab PO 325 mg QDAY JUDY Administration Atorvastatin Calcium 40 mg 01/18/21 22:00 01/18/21 22:07 Atorvastatin 40 Mg Tab PO 40 mg QHS JUDY Administration Bisacodyl 10 mg 01/18/21 10:00 Bisacodyl 10 Mg Rect Supp NH QDAY PRN Constipation Carvedilol 6.25 mg 01/18/21 11:00 01/19/21 10:41 Carvedilol 6.25 Mg Tab PO 6.25 mg BID JUDY Administration Enoxaparin Sodium 40 mg 01/18/21 22:00 01/18/21 22:07 Enoxaparin 40 Mg/0.4 Ml Inj SUB-Q 40 mg QDAY@2200 [facility] Administration Protocol Hydralazine HCl 5 mg 01/18/21 08:38 Hydralazine 20 Mg/1 Ml Inj IV Q30MIN PRN Hypertension Hydrochlorothiazide 25 mg 01/18/21 10:00 01/19/21 10:42 Hydrochlorothiazide 25 Mg Tab PO 25 mg QDAY JUDY Administration Insulin Human Isoph/Insulin Regular 15 unit 01/19/21 17:00 Insulin Nph/Regular 70/30 Inj SUB-Q BIDDIAB [facility] Insulin Human Regular 0 units 01/18/21 11:30 01/19/21 08:27 Insulin Regular, Human 100 Units/1 Ml SUB-Q 6 units ACHS [facility] Administration Protocol Magnesium Hydroxide 30 ml 01/18/21 08:39 Magnesium Hydroxide (Mom) Oral Liqd Udc PO Q4H PRN Constipation Metformin HCl 850 mg 01/19/21 10:30 01/19/21 10:44 Metformin 850 Mg Tab PO 850 mg BIDDIAB [facility] Administration Metoclopramide HCl 10 mg 01/18/21 08:39 Metoclopramide 10 Mg Tab PO Q6H PRN Nausea And Vomiting Ondansetron HCl 4 mg 01/18/21 08:39 Ondansetron 4 Mg/2 Ml Inj IV Q8H PRN Nausea And Vomiting Promethazine HCl 25 mg 01/18/21 08:39 Promethazine 25 Mg Rect Supp NH Q6H PRN Nausea And Vomiting
--- NOTE | 2021-01-19 14:04 | Discharge Summary ---
Providers - Providers Date of Admission: 01/18/21 04:51 Date of discharge: 01/19/21 Attending physician: DANA HERNANDEZ 01/18/21 08:39 Consult to Case Management [CONS] Routine Services Needed at Discharge: Home Health Services Notified:: case management Consult to Dietitian/Nutrition [CONS] Routine Physician Instructions: Reason For Exam: Reason for Consult: Nutrition Recommendations Reason for Consult: Diet education Consult to Physician [CONS] Routine Comment: Consulting Provider: CHIDI TAYLOR Physician Instructions: Reason For Exam: CVA Occupational Therapy Evaluate and Treat [CONS] Routine Comment: Reason For Exam: Neuro deficits Physical Therapy Evaluation and Treat [CONS] Routine Comment: Reason For Exam: Neuro deficits Primary care physician: [employer] Hospitalization Condition: Stable Pertinent studies: CT head, carotid Doppler, 2D echocardiogram Hospital course: Patient is 65 years old female with history of hypertension, diabetes mellitus type II on Metformin and a pacemaker in situ presented to the ER complaining of left sided weakness, mostly in the left leg along with some slurred speech since last Sunday. Patient patient denied any headache, neck pain, chest pain or shortness of breath. Since her symptoms are not getting better she decided to come to the ER for further evaluation and management. In the ER patient found to have a blood pressure of 220/85. CT head was unremarkable. Teleneurology was consulted and did not recommend any TPA. Patient was admitted with stroke protocol for further evaluation and management. Patient was further evaluated with carotid Doppler, 2D echo. MRI could not be obtained as patient has pacemaker in place, carotid Doppler showed no remarkable vascular stenosis, 2D echo had preserved EF. Patient blood pressure medications were adjusted and blood pressure was stable. She was noted to have serum blood glucose of greater than 300 with A1c 12.1. Patient was initiated on insulin along with Metformin. She was counseled to be compliant with her medications, dietary restriction and strict glycemic control. PT OT evaluated the patient and recommended home health. Neurology further evaluated the patient and recommended to continue current management and further outpatient follow-up. Patient was then discharge home with home health in stable condition. Disposition: - TO HOME OR SELFCARE Final Discharge Diagnosis (Prints w/discharge instructions): Acute CVA. Hypertensive emergency. Diabetes mellitus type 2 uncontrolled A1c ~12. Obesity Time spent for discharge: 34 minutes Core Measure Documentation - Palliative Care Palliative Care/ Comfort Measures: Not Applicable - Core Measures Any of the following diagnoses?: stroke - Stroke Discharge Requirements Statin for LDL = or >70 mg/dl on DC: Yes Anticoag for atrial fib/atrial flutter: Not Applicable Antithrombotic for ischemic stroke: Yes Exam - Physical Exam Narrative exam: GENERAL: well-developed and well-nourished obese -Cymro female lying on bed appeared to be in no discomfort. HEENT: Normocephalic. Atraumatic. No conjunctival congestion or icterus. Patient has moist mucous membranes. NECK: Supple. Trachea midline. CHEST/LUNGS: Clear to auscultated bilaterally, breathing nonlabored. No wheezes crackles or rhonchi. HEART/CARDIOVASCULAR: Regular in rate and rhythm. S1 and S2 positive. ABDOMEN: Abdomen is soft, nontender. Patient has normal bowel sounds. SKIN: There is no rash. Warm and dry. NEURO: Mild left-sided weakness. Follows command. MUSCULOSKELETAL: No joint effusion or tenderness. EXTRIMITY: No edema, no cyanosis or clubbing. PSYCH: Cooperative. - Constitutional Vitals: Temp Pulse Resp BP Pulse Ox 98.1 F 78 18 128/53 99 01/19/21 12:16 01/19/21 10:42 01/19/21 12:16 01/19/21 10:42 01/19/21 10:00 Plan Activity: advance as tolerated Weight Bearing Status: Weight Bear as Tolerated Diet: low fat, diabetic Special Instructions: record daily BP diary, record blood sugar diary, home health RN Additional Instructions: Please check your blood glucose before each meal and at bedtime. Continue insulin 70/30 15 units before breakfast and before dinner. Also use sliding scale of insulin according to following protocol in addition to insulin 70/30: BG 150-199: Apply 2 units. BG 200-249: apply 4 units. BG 250 -299: apply 6 units. BG >300 apply 8 units, >350 x2 call PCP. Please record your BP daily and maintain a diary. Follow up with: PRIMARY CARE, [Primary Care Provider] - 3-5 Days CARMEN ALEMAN MD [Staff Physician] - 7 Days Prescriptions: amLODIPine 10 mg PO QDAY #30 tablet carvediloL [Coreg] 6.25 mg PO BID #60 tablet Insulin Regular, Human [HumuLIN R] 0 units SUB-Q ACHS 30 Days Insulin NPH/Regular [NovoLIN 70/30] 15 unit SUB-Q BIDDIAB 30 Days Other Discharge Orders: Glucometer (Amb) Location: None Selected Glucometer supplies[Amb] Location: None Selected
[2021-01-19] MEDS ORDERED: INSULIN NPH/REGULAR 70/30 INJ SUB-Q SCH (17:00)
--- NOTE | 2021-01-20 11:44 | Electrocardiograph Report ---
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
== END 2021-01-19 17:20 | disposition home health service (06) | DRG 64 ==
LOC: ED 17:58 → 4A 01-18 04:51
PROVIDERS: ADMIT Internal Medicine Geriatric Medicine; ATTEND Internal Medicine
DX: I63.9 Cerebral infarction, unspecified (principal); N17.0 Acute kidney failure with tubular necrosis; I16.1 Hypertensive emergency; E87.1 Hypo-osmolality and hyponatremia; G81.94 Hemiplegia, unspecified affecting left nondominant side; Z88.8 Allergy status to other drugs, medicaments and biological substances; I10 Essential (primary) hypertension; Z87.891 Personal history of nicotine dependence; Z90.11 Acquired absence of right breast and nipple; Z95.0 Presence of cardiac pacemaker; E66.9 Obesity, unspecified; Z68.34 Body mass index [BMI] 34.0-34.9, adult; E11.65 Type 2 diabetes mellitus with hyperglycemia; R29.701 NIHSS score 1; R47.9 Unspecified speech disturbances
CPT/HCPCS: 36415; 70450; 71046; 80048; 80053; 80061; 82550; 82962; 83036; 83735; 84484; 85025; 85610; 85670; 85730; 93005; 93306; 93880; G0378; A9270-GY; J0360; J1650; J1815